=== PATIENT | female | born 1940 | race Caucasian/White ===

== ENCOUNTER 2016-08-03 07:57 | Day surgery (SDC) | payer MEDICARE, MEDICAID ==
[2016-08-03 08:05] VITALS: BMI 36.6
[2016-08-03 08:09] VITALS: RESP 18
--- NOTE | 2016-08-03 08:10 | ED PDOC ---
Arrival/HPI - General Time Seen by Provider: 08/03/16 07:59 Historian: [facility] - History of Present Illness Narrative History of Present Illness (Text): 08/03/16 08:08 Patient is a 75 year old female with a past medical history that includes anemia , hypertension, diabetes, CHF, and COPD presenting to the emergency department from nursing for PICC line placement. half-way documentation reviewed which states PICC line placement was attempted on 08/02/16 in outpatient facility and failed. It is unclear why the patient needs a PICC line. Patient was transferred to ER for Dr. Muniz to place PICC line. Past Medical History - Provider Review Nursing Documentation Reviewed: Yes - Past History Past History: Non-Contributing - Infectious Disease Hx of Infectious Diseases: None - Tetanus Immunization Tetanus Immunization: Unknown - Cardiac Hx Congestive Heart Failure: Yes Hx Hypertension: Yes Hx Peripheral Vascular Disease: Yes - Pulmonary Hx Asthma: Yes Hx Bronchitis: Yes Hx Chronic Obstructive Pulmonary Disease (COPD): Yes Hx Emphysema: Yes Hx Pneumonia: Yes Hx Respiratory Tract Infection: Yes Other/Comment: pt has trach - Neurological HX Cerebrovascular Accident: Yes Other/Comment: gout - HEENT Hx Glaucoma: Yes - Renal Hx Renal Disorder: No Hx Dialysis: No Hx Kidney Stones: No Hx Neurogenic Bladder: No Hx Pyelonephritis: No Hx Renal Cancer: No Hx Renal Failure: No Other/Comment: acute renal failure - Endocrine/Metabolic Hx Diabetes Mellitus Type 2: Yes - Hematological/Oncological Hx Anemia: Yes - Integumentary Hx Dermatological Disorder: No Hx Basal Cell Carcinoma: No Hx Eczema: No Hx Melanoma: No Hx Psoriasis: No Hx Squamous Cell Carcinoma: No - Musculoskeletal/Rheumatological Hx Falls: No Hx Gout: Yes Hx Spinal Stenosis: Yes - Gastrointestinal Hx Colostomy: Yes Hx Gastroesophageal Reflux: Yes HX Swallowing Problems: Yes Other/Comment: hx tube feeding;g-tube - Genitourinary/Gynecological Hx Urinary Tract Infection: Yes Other/Comment: 2w higgins - Psychiatric Hx Depression: Yes Hx Substance Use: No - Past Surgical History Past Surgical History: Unable to Obtain - Surgical History Hx Amputation: No Hx Appendectomy: No Hx Cardiac Catheterization: No Hx Cholecystectomy: No Hx Coronary Stent: No Hx Gastric Bypass Surgery: No Hx Hysterectomy: No Hx Joint Replacement: No Hx Kidney Transplant: No Hx Liver Transplant: No Hx Mastectomy: No Hx Musculoskeletal Surgery: No Hx Open Heart Surgery: No Hx Orthopedic Surgery: No Hx Splenectomy: No Hx Valve Replacement: No - Anesthesia Hx Anesthesia: No Hx Anesthesia Reactions: No Hx Malignant Hyperthermia: No - Suicidal Assessment Feels Threatened In Home Enviroment: No Family/Social History - Physician Review Nursing Documentation Reviewed: Yes Family/Social History: Unknown Family HX Smoking Status: Former Smoker Hx Alcohol Use: No Hx Substance Use: No Hx Substance Use Treatment: No Allergies/Home Meds Allergies/Adverse Reactions: Allergies No Known Allergies Allergy (Verified 08/03/16 08:05) [place] [facility] [place] Home Medications: Home Meds Medication Instructions Recorded Confirmed Insulin Glargine, Recombina 10 unit SC HS 07/29/15 08/03/16 [Lantus] Albuterol/Ipratropium [Duoneb 3 3 ml IH QID 07/02/16 08/03/16 MG/3 Ml-0.5 MG/3 Ml 3 Ml] Allopurinol [Zyloprim] 100 mg JT DAILY 07/02/16 08/03/16 Heparin [Heparin (RENAL)] 5,000 units SC BID 07/02/16 08/03/16 Rosuvastatin Calcium [Crestor] 5 mg JT DAILY 07/02/16 08/03/16 Acetaminophen [Tylenol 650 mg Supp] 650 mg PEG Q6H PRN 08/03/16 08/03/16 Acetylcysteine 20% [Acetylcysteine 1 inh INH QID 08/03/16 08/03/16 20%] Amino Acids/Protein Hydrolys 30 ml JT DAILY 08/03/16 08/03/16 [Prosource No Carb Liquid Pkt] Clotrimazole/Betamethasone 0 gm TOP BID 08/03/16 08/03/16 [Lotrisone] Epoetin Pascual [Procrit] 40,000 unit SC MON 08/03/16 08/03/16 Insulin Lispro-LOW [humALOG LOW] 0 units SC BID 08/03/16 08/03/16 Levothyroxine [Synthroid] 200 mcg PEG DAILY 08/03/16 08/03/16 Review of Systems - Review of Systems Systems not reviewed;Unavailable: Other (Nonverbal) Physical Exam Vital Signs Reviewed: Yes Vital Signs Temp Pulse Resp BP Pulse Ox 08/03/16 11:09 95 H 18 196/84 H 97 08/03/16 08:09 97.9 F 98 H 18 123/53 L 97 Temperature: Afebrile Blood Pressure: Normal Pulse: Regular Respiratory Rate: Normal Appearance: Positive for: Well-Appearing, Non-Toxic Pain Distress: None Mental Status: Positive for: other (Nonverbal but following commands and responding by shaking head) - Systems Exam Head: Present: Atraumatic, Normocephalic Pupils: Present: PERRL Conjunctiva: Present: Normal Respiratory/Chest: Present: Clear to Auscultation, Good Air Exchange, Other ( Trach tube in place ). No: Respiratory Distress, Accessory Muscle Use Cardiovascular: Present: Regular Rate and Rhythm, Normal S1, S2. No: Murmurs Abdomen: Present: Normal Bowel Sounds, Other (G-tube in place with dressing). No: Tenderness, Distention, Peritoneal Signs Genitourinary/Pelvic Exam: Present: Other (Higgins in place) Upper Extremity: Present: Normal Inspection. No: Cyanosis, Edema Lower Extremity: Present: Normal Inspection, Normal ROM, Other (Moving lower extremities ). No: Edema Neurological: Present: Motor Func Grossly Intact Skin: Present: Warm, Dry, Normal Color. No: Rashes Psychiatric: Present: Alert, Other (Nonverbal but following commands and responding by shaking head) Medical Decision Making ED Course and Treatment: Impression: 75 year old female with a past medical history that includes anemia , hypertension, diabetes, CHF, and COPD presents to the emergency department from nursing for PICC line placement. Plan: -- PICC line placement by Dr. Muniz Prior Visits: Notes and results from previous visits were reviewed. Patient last seen in ED on 07/02/16 for g-tube replacement and discharged. Progress Notes: 08/03/16 08:59 Dr. Muniz paged, awaiting PICC line placement. 08/03/16 11:19 Dr. Muniz is being covered by Dr. Panda. Patient to be transferred to Same day surgery for PICC line placement. - Scribe Statement The provider has reviewed the documentation as recorded by the Christiane Heredia Provider Scribe Attestation: All medical record entries made by the Scribe were at my direction and personally dictated by me. I have reviewed the chart and agree that the record accurately reflects my personal performance of the history, physical exam, medical decision making, and the department course for this patient. I have also personally directed, reviewed, and agree with the discharge instructions and disposition. Disposition/Present on Arrival - Present on Arrival Any Indicators Present on Arrival: No History of DVT/PE: No History of Uncontrolled Diabetes: No Urinary Catheter: Yes (changed in ed) History Surgical Site Infection Following: None - Disposition Have Diagnosis and Disposition been Completed?: Yes Diagnosis: Needs peripherally inserted central catheter (PICC) Disposition: HOSPITALIZED Disposition Time: 11:20 Patient Plan: Transfer To ([facility]) Condition: GOOD
[2016-08-03 12:27] VITALS: PULSE 87
[2016-08-03] MEDS ORDERED: Lidocaine 2% Inj (20ml) ONE (16:23)
[2016-08-03] MEDS ORDERED: Iohexol 350mgl/ml 50 ML ONE (16:55)
--- NOTE | 2016-08-03 17:39 | VASCULAR ---
PROCEDURE: Ultrasound and fluoroscopically placed right upper extremity PICC line. HISTORY: Sepsis. Needs IV antibiotics. Needs PICC line. PHYSICIAN(S): Bryan Muniz MD. TECHNIQUE: The relative risks and indications of the procedure were explained to the patient's family and consent obtained. Initially attempts at placing a PICC line on the left were performed. There is extensive venous occlusive disease on the left centrally and a PICC line could not be placed on the left. The patient was placed supine on the arteriogram table and the right arm prepped and draped in the usual sterile fashion. A tourniquet was applied to the right axilla. 1% Xylocaine was used to anesthetize the skin and soft tissues at the puncture site above the elbow. The right basilic vein was punctured under direct ultrasound guidance with a micropuncture set. A 0.018 guidewire was advanced centrally and used to measure the length to the SVC/RA junction. A 5 Italian single-lumen PICC line 41 cm long was advanced to the SVC/RA junction. The catheter was flushed and secured. The patient tolerated the procedure well. IMPRESSION: 1. Ultrasound and fluoroscopically placed right upper extremity PICC line. A 5 Italian single-lumen PICC line 41 cm long was advanced to the SVC/RA junction. 2. Extensive venous occlusive disease on the left. A PICC line could not be placed left upper extremity.
[2016-08-03 17:59] VITALS: BP 154/64; TEMP 97.8; O2SAT 100
== END 2016-08-03 19:15 ==
LOC: ED 07:57 → CATH 13:29
PROVIDERS: ATTEND Radiology Vascular & Interventional Radiology
DX: Z45.2 Encounter for adjustment and management of vascular access device (principal); D64.9 Anemia, unspecified; I10 Essential (primary) hypertension; E11.9 Type 2 diabetes mellitus without complications; I50.9 Heart failure, unspecified; J44.9 Chronic obstructive pulmonary disease, unspecified; F32.89 Other specified depressive episodes; H40.9 Unspecified glaucoma; I73.9 Peripheral vascular disease, unspecified; J45.909 Unspecified asthma, uncomplicated; M10.9 Gout, unspecified; Z79.4 Long term (current) use of insulin; Z86.73 Personal history of transient ischemic attack (TIA), and cerebral infarction without residual deficits; Z87.891 Personal history of nicotine dependence; Z93.0 Tracheostomy status; Z93.3 Colostomy status; Z87.01 Personal history of pneumonia (recurrent); N17.9 Acute kidney failure, unspecified; Z87.440 Personal history of urinary (tract) infections
CPT/HCPCS: 36569; 76937; 77001; 99284; C1751; C1769; J1644; Q9967

== ENCOUNTER 2016-08-16 10:35 | Emergency (ER) | payer MEDICARE, MEDICAID ==
[2016-08-16 10:36] VITALS: BMI 36.6
[2016-08-16 11:02] VITALS: TEMP 97.6
--- NOTE | 2016-08-16 11:35 | ED PDOC ---
Arrival/HPI - General Chief Complaint: Medical Clearance Time Seen by Provider: 08/16/16 11:16 Historian: Correction - History of Present Illness Narrative History of Present Illness (Text): 08/16/16 11:16 A 76 year old female, whose past medical history includes CHF, diabetes, hypertension, COPD and trachea and J tube, who is sent into the emergency department for the longterm for a dislodged J tube and tracheostomy tube change. There is no report of fever, nausea, vomiting, or any other complaints at this time. Patient says feels some skin irritation of the abdomen around j- tube site. PMD: Dr. Aceves Surgeon: Dr. Torres Past Medical History - Provider Review Nursing Documentation Reviewed: Yes - Past History Past History: Non-Contributing - Infectious Disease Hx of Infectious Diseases: None - Tetanus Immunization Tetanus Immunization: Unknown - Cardiac Hx Congestive Heart Failure: Yes Hx Hypertension: Yes Hx Peripheral Vascular Disease: Yes - Pulmonary Hx Asthma: Yes Hx Bronchitis: Yes Hx Chronic Obstructive Pulmonary Disease (COPD): Yes Hx Emphysema: Yes Hx Pneumonia: Yes Hx Respiratory Tract Infection: Yes Other/Comment: pt has trach - Neurological HX Cerebrovascular Accident: Yes Other/Comment: gout - HEENT Hx Glaucoma: Yes - Renal Hx Renal Disorder: No Hx Dialysis: No Hx Kidney Stones: No Hx Neurogenic Bladder: No Hx Pyelonephritis: No Hx Renal Cancer: No Hx Renal Failure: No Other/Comment: acute renal failure - Endocrine/Metabolic Hx Diabetes Mellitus Type 2: Yes - Hematological/Oncological Hx Anemia: Yes - Integumentary Hx Dermatological Disorder: No Hx Basal Cell Carcinoma: No Hx Eczema: No Hx Melanoma: No Hx Psoriasis: No Hx Squamous Cell Carcinoma: No - Musculoskeletal/Rheumatological Hx Falls: No Hx Gout: Yes Hx Spinal Stenosis: Yes - Gastrointestinal Hx Colostomy: Yes Hx Gastroesophageal Reflux: Yes HX Swallowing Problems: Yes Other/Comment: hx tube feeding;g-tube - Genitourinary/Gynecological Hx Urinary Tract Infection: Yes Other/Comment: 2w higgins - Psychiatric Hx Depression: Yes Hx Substance Use: No - Past Surgical History Past Surgical History: Unable to Obtain - Surgical History Hx Amputation: No Hx Appendectomy: No Hx Cardiac Catheterization: No Hx Cholecystectomy: No Hx Coronary Stent: No Hx Gastric Bypass Surgery: No Hx Hysterectomy: No Hx Joint Replacement: No Hx Kidney Transplant: No Hx Liver Transplant: No Hx Mastectomy: No Hx Musculoskeletal Surgery: No Hx Open Heart Surgery: No Hx Orthopedic Surgery: No Hx Splenectomy: No Hx Valve Replacement: No - Anesthesia Hx Anesthesia: No Hx Anesthesia Reactions: No Hx Malignant Hyperthermia: No - Suicidal Assessment Feels Threatened In Home Enviroment: No Family/Social History - Physician Review Nursing Documentation Reviewed: Yes Family/Social History: Unknown Family HX Smoking Status: Former Smoker Hx Alcohol Use: No Hx Substance Use: No Hx Substance Use Treatment: No Allergies/Home Meds Allergies/Adverse Reactions: Allergies No Known Allergies Allergy (Verified 08/03/16 08:05) as per [facility] [place] chart Home Medications: Home Meds Medication Instructions Recorded Confirmed Insulin Glargine, Recombina 10 unit SC HS 07/29/15 08/03/16 [Lantus] Albuterol/Ipratropium [Duoneb 3 3 ml IH QID 07/02/16 08/03/16 MG/3 Ml-0.5 MG/3 Ml 3 Ml] Allopurinol [Zyloprim] 100 mg JT DAILY 07/02/16 08/03/16 Heparin [Heparin (RENAL)] 5,000 units SC BID 07/02/16 08/03/16 Rosuvastatin Calcium [Crestor] 5 mg JT DAILY 07/02/16 08/03/16 Acetaminophen [Tylenol 650 mg Supp] 650 mg PEG Q6H PRN 08/03/16 08/03/16 Acetylcysteine 20% [Acetylcysteine 1 inh INH QID 08/03/16 08/03/16 20%] Amino Acids/Protein Hydrolys 30 ml JT DAILY 08/03/16 08/03/16 [Prosource No Carb Liquid Pkt] Clotrimazole/Betamethasone 0 gm TOP BID 08/03/16 08/03/16 [Lotrisone] Epoetin Pascual [Procrit] 40,000 unit SC MON 08/03/16 08/03/16 Insulin Lispro-LOW [humALOG LOW] 0 units SC BID 08/03/16 08/03/16 Levothyroxine [Synthroid] 200 mcg PEG DAILY 08/03/16 08/03/16 Review of Systems - Physician Review All systems were reviewed & negative as marked: Yes - Review of Systems Constitutional: absent: Fevers ENT: Other (dislodged J tube and tracheostomy tube change) Respiratory: absent: SOB Cardiovascular: absent: Chest Pain Gastrointestinal: absent: Nausea, Vomiting Physical Exam Vital Signs Reviewed: Yes Vital Signs Temp Pulse Resp BP Pulse Ox 08/16/16 11:56 79 18 157/76 H 98 08/16/16 10:47 97.6 F 89 17 159/80 H 100 Temperature: Afebrile Blood Pressure: Hypertensive Pulse: Regular Respiratory Rate: Normal Appearance: Positive for: Well-Appearing, Non-Toxic, Comfortable, Other (Obese, pleasant 76 y.o female with trach and PEG, NAD) Pain Distress: None Mental Status: Positive for: Alert and Oriented X 3 - Systems Exam Head: Present: Atraumatic, Normocephalic Pharnyx: Present: Other (Trachea in place) Neck: Present: Other (Tracheostomy in place) Respiratory/Chest: Present: Good Air Exchange, Rhonchi (occasional). No: Respiratory Distress, Tachypneic Cardiovascular: Present: Regular Rate and Rhythm, Normal S1, S2. No: Murmurs Abdomen: Present: Normal Bowel Sounds, Ostomy Tubes (j-tube dislodged with weeping skin and clear yellowish d/c around site). No: Tenderness, Distention Medical Decision Making ED Course and Treatment: 08/16/16 11:16 Impression: A 76 year old female sent in for a dislodged J tube and tracheostomy tube change. Plan: -- Consult Dr. Torres -- Reassess and disposition Prior Visits: Notes and results from previous visits were reviewed. The patient last presented to the emergency department on 08/03/16 for a PICC line placement. Progress Notes: 08/16/16 11:40 Dr. Torres came down to the emergency department to evaluate the patient. 08/16/16 12:57 Dr. Torres changed j-tube with resolution of clearish d/c and also changed the tracheostomy. Dr. Torres said he will discuss with family regarding potentially changing the tube site, given frequency of dislodgement; to be discussed outpatient. Ok for d/c to [place] at this time. - Scribe Statement The provider has reviewed the documentation as recorded by the Scribe Gerry Salvador Provider Scribe Attestation: All medical record entries made by the Scribe were at my direction and personally dictated by me. I have reviewed the chart and agree that the record accurately reflects my personal performance of the history, physical exam, medical decision making, and the department course for this patient. I have also personally directed, reviewed, and agree with the discharge instructions and disposition. Disposition/Present on Arrival - Present on Arrival Any Indicators Present on Arrival: Yes History of DVT/PE: No History of Uncontrolled Diabetes: No Urinary Catheter: Yes (changed in ed) History of Decub. Ulcer: No History Surgical Site Infection Following: None - Disposition Have Diagnosis and Disposition been Completed?: Yes Diagnosis: Tracheostomy care, Jejunostomy tube fell out Disposition: HOME/ ROUTINE Disposition Time: 12:30 Patient Plan: Discharge Condition: GOOD Additional Instructions: Continue j-tube use and maintenance care. Return to the emergency department if any new concerning symptoms. Referrals: Dom Aceves MD [Staff Provider] - Follow up with primary Rudi Torres MD [Staff Provider] - Follow up with primary
[2016-08-16 11:57] VITALS: RESP 18
[2016-08-16 13:34] VITALS: BP 161/61; PULSE 87; O2SAT 100
== END 2016-08-16 15:04 | disposition home or self-care (01) ==
LOC: ED 10:35
DX: Z43.0 Encounter for attention to tracheostomy (principal); Z93.0 Tracheostomy status; Z93.4 Other artificial openings of gastrointestinal tract status; Z87.891 Personal history of nicotine dependence; E11.9 Type 2 diabetes mellitus without complications; I10 Essential (primary) hypertension

== ENCOUNTER 2016-09-20 11:51 | Inpatient (IN) | payer MEDICARE, MEDICAID ==
[2016-09-20 12:20] VITALS: BMI 28.0
[2016-09-20 12:56] LABS: ADD MANUAL DIFF? NO
[2016-09-20 13:04] LABS: BASO # 0.02 K/mm3 (0.0-2.0); BASO % 0.1 % (0.0-3.0); EOS # 0.3 (0.0-0.7); EOS % 2.1 % (1.5-5.0); GRAN # 13.34 (1.4-6.5); GRAN % 81.3 % (50.0-68.0); HEMATOCRIT 33.3 % (36.0-48.0); LYMPH % 12.1 % (22.0-35.0); MEAN CELL VOLUME 96.8 fL (80.0-105.0); MEAN CORPUSCULAR HEMOGLOBIN 31.7 pg (25.0-35.0); MEAN CORPUSCULAR HGB CONC 32.7 g/dl (31.0-37.0); MEAN PLATELET VOLUME 12.2 fl (7.0-11.0); MONO # 0.7 (0.1-0.6); MONO % 4.4 % (1.0-6.0); PLATELET COUNT 293 10^3/uL (120.0-450.0); RED CELL DISTRIBUTION WIDTH 17.2 % (11.5-14.5); WHITE BLOOD COUNT 16.4 10^3/ul (4.5-11.0)
[2016-09-20 13:10] LABS: BILIRUBIN,TOTAL 0.6 mg/dL (0.2-1.3); CALCIUM 9.9 mg/dL (8.4-10.5); MAGNESIUM 2.3 mg/dL (1.7-2.2); TOTAL PROTEIN 7.9 g/dL (5.8-8.3)
[2016-09-20 13:11] LABS: INR 0.99 (0.93-1.08)
--- NOTE | 2016-09-20 13:13 | RAD ---
HISTORY: renal failure COMPARISON: 07/02/2016 FINDINGS: LUNGS: No active pulmonary disease. PLEURA: No significant pleural effusion identified, no pneumothorax apparent. CARDIOVASCULAR: Normal. OSSEOUS STRUCTURES: No significant abnormalities. VISUALIZED UPPER ABDOMEN: Normal. OTHER FINDINGS: None. IMPRESSION: No active disease.
[2016-09-20 13:21] LABS: POTASSIUM 2.9 mmol/L (3.6-5.0); TROPONIN I 0.04 ng/mL
[2016-09-20] MEDS ORDERED: Potassium Chloride 40 mEq/30 ml LIQ UD PO STA (13:28)
--- NOTE | 2016-09-20 13:29 | ED PDOC ---
Arrival/HPI - General Chief Complaint: Abnormal Labs Time Seen by Provider: 09/20/16 11:58 Historian: Patient - History of Present Illness Narrative History of Present Illness (Text): 09/20/16 12:23 A 76 year old female, whose past medical history includes COPD, CHF, diabetes, hypertension, chronic renal insufficiency with baseline about creatine of 3.5, decubitus ulcer and trachea and J tube, who is [facility] for elevated creatine levels. The patient herself, says she feels like her usually state of health. Patient denies any fever, or other complaints at this time. PMD: Dr. Aceves Surgeon: Dr. Torres Past Medical History - Provider Review Nursing Documentation Reviewed: Yes - Past History Past History: Non-Contributing - Infectious Disease Hx of Infectious Diseases: None - Tetanus Immunization Tetanus Immunization: Unknown - Cardiac Hx Congestive Heart Failure: Yes Hx Hypertension: Yes Hx Peripheral Vascular Disease: Yes - Pulmonary Hx Asthma: Yes Hx Bronchitis: Yes Hx Chronic Obstructive Pulmonary Disease (COPD): Yes Hx Emphysema: Yes Hx Pneumonia: Yes Hx Respiratory Tract Infection: Yes Other/Comment: pt has trach - Neurological HX Cerebrovascular Accident: Yes Other/Comment: gout - HEENT Hx Glaucoma: Yes - Renal Hx Renal Disorder: No Hx Dialysis: No Hx Kidney Stones: No Hx Neurogenic Bladder: No Hx Pyelonephritis: No Hx Renal Cancer: No Hx Renal Failure: No Other/Comment: acute renal failure - Endocrine/Metabolic Hx Diabetes Mellitus Type 2: Yes - Hematological/Oncological Hx Anemia: Yes - Integumentary Hx Dermatological Disorder: No Hx Basal Cell Carcinoma: No Hx Eczema: No Hx Melanoma: No Hx Psoriasis: No Hx Squamous Cell Carcinoma: No - Musculoskeletal/Rheumatological Hx Falls: No Hx Gout: Yes Hx Spinal Stenosis: Yes - Gastrointestinal Hx Colostomy: Yes Hx Gastroesophageal Reflux: Yes HX Swallowing Problems: Yes Other/Comment: hx tube feeding;g-tube - Genitourinary/Gynecological Hx Urinary Tract Infection: Yes Other/Comment: 2w higgins - Psychiatric Hx Depression: Yes Hx Substance Use: No - Past Surgical History Past Surgical History: Unable to Obtain - Surgical History Hx Amputation: No Hx Appendectomy: No Hx Cardiac Catheterization: No Hx Cholecystectomy: No Hx Coronary Stent: No Hx Gastric Bypass Surgery: No Hx Hysterectomy: No Hx Joint Replacement: No Hx Kidney Transplant: No Hx Liver Transplant: No Hx Mastectomy: No Hx Musculoskeletal Surgery: No Hx Open Heart Surgery: No Hx Orthopedic Surgery: No Hx Splenectomy: No Hx Valve Replacement: No - Anesthesia Hx Anesthesia: No Hx Anesthesia Reactions: No Hx Malignant Hyperthermia: No - Suicidal Assessment Feels Threatened In Home Enviroment: No Family/Social History - Physician Review Nursing Documentation Reviewed: Yes Family/Social History: Unknown Family HX Smoking Status: Former Smoker Hx Alcohol Use: No Hx Substance Use: No Hx Substance Use Treatment: No Allergies/Home Meds Allergies/Adverse Reactions: Allergies No Known Allergies Allergy (Verified 09/20/16 13:05) as per [facility] Home Medications: Home Meds Medication Instructions Recorded Confirmed Insulin Glargine, Recombina 10 unit SC HS 07/29/15 08/03/16 [Lantus] Albuterol/Ipratropium [Duoneb 3 3 ml IH QID 07/02/16 08/03/16 MG/3 Ml-0.5 MG/3 Ml 3 Ml] Allopurinol [Zyloprim] 100 mg JT DAILY 07/02/16 08/03/16 Heparin [Heparin (RENAL)] 5,000 units SC BID 07/02/16 08/03/16 Rosuvastatin Calcium [Crestor] 5 mg JT DAILY 07/02/16 08/03/16 Acetaminophen [Tylenol 650 mg Supp] 650 mg PEG Q6H PRN 08/03/16 08/03/16 Acetylcysteine 20% [Acetylcysteine 1 inh INH QID 08/03/16 08/03/16 20%] Amino Acids/Protein Hydrolys 30 ml JT DAILY 08/03/16 08/03/16 [Prosource No Carb Liquid Pkt] Clotrimazole/Betamethasone 0 gm TOP BID 08/03/16 08/03/16 [Lotrisone] Epoetin Pascual [Procrit] 40,000 unit SC MON 08/03/16 08/03/16 Insulin Lispro-LOW [humALOG LOW] 0 units SC BID 08/03/16 08/03/16 Levothyroxine [Synthroid] 200 mcg PEG DAILY 08/03/16 08/03/16 Review of Systems - Physician Review All systems were reviewed & negative as marked: Yes - Review of Systems Constitutional: Other. absent: Fevers Respiratory: absent: SOB, Cough Cardiovascular: absent: Chest Pain Gastrointestinal: Abdominal Pain (chronic around j-tube site). absent: Nausea, Vomiting Genitourinary Female: Frequency (diminished), Other (elevated creatinine) Musculoskeletal: absent: Back Pain Neurological: absent: Dizziness Physical Exam Vital Signs Reviewed: Yes Vital Signs Temp Pulse Resp BP Pulse Ox 09/20/16 11:52 98.1 F 90 18 145/50 L 98 Temperature: Afebrile Blood Pressure: Normal Pulse: Regular Respiratory Rate: Normal Appearance: Positive for: Non-Toxic, Other (patient with trach and j-tube) Pain Distress: None Mental Status: Positive for: Alert and Oriented X 3 - Systems Exam Head: Present: Atraumatic, Normocephalic Pupils: Present: PERRL Conjunctiva: Present: Normal Mouth: Present: Moist Mucous Membranes Pharnyx: Present: Normal. No: ERYTHEMA Neck: Present: Normal Range of Motion, Other (trachea tube in place) Respiratory/Chest: Present: Good Air Exchange, Decreased Breath Sounds ( bilateral bases). No: Respiratory Distress, Accessory Muscle Use Cardiovascular: Present: Regular Rate and Rhythm, Normal S1, S2. No: Murmurs Abdomen: Present: Tenderness (around j-tube site), Normal Bowel Sounds, Other ( colostomy and J tube in place with raw abdominal wall and tenderness with palpation around the J-tube site (chronic)). No: Distention, Peritoneal Signs Back: Present: Decubitus Ulcer (stage 2 decubitus ulcer on the left) Upper Extremity: Present: Normal Inspection. No: Cyanosis, Edema Lower Extremity: Present: Normal Inspection. No: Edema Neurological: Present: GCS=15, CN II-XII Intact, Speech Normal Skin: Present: Warm, Dry, Normal Color. No: Rashes Psychiatric: Present: Alert, Oriented x 3, Normal Insight, Normal Concentration. No: Normal Mood (patients mood seem slightly depressed compared to her prior visits) Medical Decision Making ED Course and Treatment: 09/20/16 12:23 Impression: A 76 year old female with elevated creatine levels. Patient usually has creatine levels in the 3 range Differential Diagnosis included but are not limited to: Kidney failure diagnosed. Elevated WBC possibly due to chronically infected abdominal wall site Plan: -- EKG -- Chest X-ray -- Labs -- Urinalysis -- Reassess and disposition Prior Visits: Notes and results from previous visits were reviewed. The patient last presented to the emergency department on 08/16/16 for evaluation of a dislodged J tube and tracheostomy tube change. Progress Notes: 09/20/16 14:21 Patient with creatinine of 8.1 and BUN > 150 - will start IV hydration. Will also start abx for elevated WBC of 16.4K; lactic acid 1.6; patient does not fit code sepsis criteria. K is 2.9 -will supplement. Case discussed with Dr. Aceves - will need to be admitted to med/surg for profound renal failure. - Lab Interpretations Lab Results: 09/20/16 12:45 09/20/16 12:45 Lab Results 09/20/16 13:05: pO2 53, VBG pH 7.34, VBG pCO2 58.0, VBG HCO3 31.3 H, VBG Total CO2 33.1 H, VBG O2 Sat (Calc) 93.7 H, VBG Base Excess 3.9 H, VBG Potassium 3.3 L , Glucose 281 H, Lactate 1.6, FiO2 21.0, Sodium 137.0, Chloride 96.0 L, Venous Blood Potassium 3.3 L 09/20/16 12:45: Blood Type Pending, Antibody Screen Pending, BBK History Checked Patient has bt 09/20/16 12:45: Sodium 137, Potassium 2.9 L*, Chloride 91 L, Carbon Dioxide 29, Anion Gap 20, BUN 155 H*, Creatinine 8.1 H*, Est GFR ( Amer) 6, Est GFR ( Non-Af Amer) 5, Random Glucose 276 H, Calcium 9.9, Magnesium 2.3 H, Total Bilirubin 0.6, AST 22, ALT 28, Alkaline Phosphatase 153 H, Lactate Dehydrogenase 303 L, Total Creatine Kinase 23 L, Troponin I 0.04 D, Total Protein 7.9, Albumin 3.9, Globulin 4.0, Albumin/Globulin Ratio 1.0 L 09/20/16 12:45: PT 10.7, INR 0.99, APTT 28.0 09/20/16 12:45: WBC 16.4 H D, RBC 3.44 L, Hgb 10.9 L, Hct 33.3 L, MCV 96.8, MCH 31.7, MCHC 32.7, RDW 17.2 H, Plt Count 293, MPV 12.2 H, Gran % 81.3 H, Lymph % ( Auto) 12.1 L, [place] % (Auto) 4.4, Eos % (Auto) 2.1, Baso % (Auto) 0.1, Gran # 13.34 H, Lymph # 2.0, [place] # 0.7 H, Eos # 0.3, Baso # 0.02 I have reviewed the lab results: Yes - RAD Interpretation Radiology Orders: 09/20/16 12:33 CHEST PORTABLE [RAD] Stat - EKG Interpretation EKG Interpretation (Text): 09/20/16 14:25 NSR @ 95 with RBBB; Q waves inferiorly; QRS is 150; normal axis; no new ST/T changes c/w previous on 07/02/16 - Medication Orders Current Medication Orders: Acetylcysteine (Acetylcysteine 20%) 1 ml INH QID [facility] Albuterol/Ipratropium (Duoneb 3 Mg/0.5 Mg (3 Ml) Ud) 3 ml IH QIDRESP [facility] Vancomycin HCl (Vancomycin 1gm) 1 gm in 250 mls @ 133.333 mls/hr IVPB STAT STA PRN Reason: Protocol Stop: 09/20/16 15:26 Sodium Chloride (Sodium Chloride 0.9%) 1,000 mls @ 100 mls/hr IV .Q10H [facility] Stop: 09/24/16 17:44 Ampicillin Sodium/Sulbactam Sodium (Unasyn 1 Gm-0.5 Gm) 1 gm in 100 mls @ 100 mls/hr IVPB ONCE STA PRN Reason: Protocol Stop: 09/20/16 14:46 Insulin Detemir (Levemir) 10 unit SC HS [facility] Insulin Human Lispro (Humalog Low) 0 units SC Q6H [facility] PRN Reason: Protocol Levothyroxine Sodium (Synthroid) 200 mcg PEG ACB [facility] Metoprolol Tartrate (Lopressor) 25 mg PEG Q8 [facility] Non-Formulary Medication (Epoetin Pascual [Procrit]) 40,000 unit SC MON [facility] Non-Formulary Medication (Rosuvastatin Calcium [Crestor]) 5 mg JT DAILY [facility] Pantoprazole Sodium (Protonix Susp) 40 mg PEG DAILY [facility] Discontinued Medications Iohexol (Omnipaque 240 (50 Ml)) Confirm Administered Dose 50 ml .ROUTE .STK-MED ONE Stop: 09/20/16 13:43 Potassium Chloride (Potassium Chloride Oral Soln) 40 meq PO STAT STA Stop: 09/20/16 13:29 - Scribe Statement The provider has reviewed the documentation as recorded by the Elvinibblaine Salvador Provider Elvinibe Attestation: All medical record entries made by the Scribe were at my direction and personally dictated by me. I have reviewed the chart and agree that the record accurately reflects my personal performance of the history, physical exam, medical decision making, and the department course for this patient. I have also personally directed, reviewed, and agree with the discharge instructions and disposition. Disposition/Present on Arrival - Present on Arrival Any Indicators Present on Arrival: Yes History of DVT/PE: No History of Uncontrolled Diabetes: No Urinary Catheter: Yes (changed in ed) History of Decub. Ulcer: No History Surgical Site Infection Following: None - Disposition Have Diagnosis and Disposition been Completed?: Yes Diagnosis: Renal failure, Leukocytosis, Hypokalemia Disposition: HOSPITALIZED Disposition Time: 13:33 Patient Plan: Admission Condition: SERIOUS
[2016-09-20] MEDS ORDERED: Vancomycin 1gm in NS 250ml 1 GM/250 ML BAG IVPB STA (13:34)
[2016-09-20] MEDS ORDERED: Iohexol 240 (50 ml) ONE (13:42)
[2016-09-20] MEDS ORDERED: Non Formulary Medication (Rosuvastatin Calcium [Crestor] 5 MG) JT SCH (13:45)
[2016-09-20] MEDS: Sodium Chloride 0.9% 1,000 ML IV SCH ×2 (14:00→14:29)
[2016-09-20 14:01] LABS: VENOUS BLOOD GAS BASE EXCESS 3.9 mmol/L (0.0-2.0); VENOUS BLOOD PH 7.34 (7.32-7.43)
[2016-09-20] MEDS: Albuterol-Ipratrop 3 mg / 0.5 (3 ml) UD IH SCH ×2 (14:19→17:04)
[2016-09-20] MEDS: Sodium Chloride 0.9% 1,000 ML IV STA ×2 (14:20→14:55)
[2016-09-20] MEDS ORDERED: Insulin Regular 1 UNITS/0.01 ML ML ONE (14:36)
[2016-09-20] MEDS: Insulin Lispro (humaLOG) LOW Coverage SC SCH ×2 (14:37→22:57)
[2016-09-20] MEDS: Pantoprazole 40 mg Susp UD PEG SCH (14:39)
[2016-09-20] MEDS: Acetylcysteine 20% Inhal Soln (4ml) INH SCH (14:39)
--- NOTE | 2016-09-20 16:10 | CP.PCM.CON ---
<CliffCaden - Last Filed: 09/20/16 16:49> History of Present Illness - History of Present Illness History of Present Illness: General Surgery Consult Note for Dr. Torres 75 F with PMHx COPD, chronic CHF, DM, S/P PEG tube placement, chronic renal failure Stage 4, chronic higgins catheter use due to neurogenic bladder was brought to [facility] because of abnormal labs consisting of elevated BUN and creatinine leukocytosis and acute renal failure and hypokalemia at [facility] and subsequently brought to [facility] ED. sent to the ER. Patient reports mild abdominal pain. She denies having fever, chills, CP, SOB, n/v/d palpitations, dysuria, hematuria, numbness or tingling. PMHx: HTN, IDDM, CHF, GERD, JUANPABLO, gout, functional quadroplegia (bedridden), decubitus ulcer, colonic volvulus, COPD , CKD stage IV, baseline Cr 3.5, hypothyriodism, [place], neurogenic bladder PSHx: colostomy, jejunostomy, peg and trach placement SHx: denies etoh/former smoker tobacco/denied illicit drug use FamHx: non contributory Meds: MAR Reviewed Allergies: NKDA PMD: Dr. cAeves Review of Systems - Review of Systems Review of Systems: as per HPI otherwise negative Past Patient History - Infectious Disease Hx of Infectious Diseases: None - Tetanus Immunizations Tetanus Immunization: Unknown - Past Social History Smoking Status: Former Smoker - CARDIAC Hx Congestive Heart Failure: Yes Hx Hypertension: Yes Hx Peripheral Vascular Disease: Yes - PULMONARY Hx Asthma: Yes Hx Bronchitis: Yes Hx Chronic Obstructive Pulmonary Disease (COPD): Yes Hx Emphysema: Yes Hx Pneumonia: Yes Hx Respiratory Tract Infection: Yes Other/Comment: pt has trach - NEUROLOGICAL HX Cerebrovascular Accident: Yes Other/Comment: gout - HEENT Hx Glaucoma: Yes - RENAL Hx Chronic Kidney Disease: No Hx Dialysis: No Hx Kidney Stones: No Hx Neurogenic Bladder: No Hx Pyelonephritis: No Hx Renal (Kidney) Cancer: No Hx Renal Failure: No Other/Comment: acute renal failure - ENDOCRINE/METABOLIC Hx Diabetes Mellitus Type 2: Yes - HEMATOLOGICAL/ONCOLOGICAL Hx Anemia: Yes - INTEGUMENTARY Hx Dermatological Problems: No Hx Basil Cell: No Hx Eczema: No Hx Melanoma: No Hx Psoriasis: No Hx Squamous Cell: No - MUSCULOSKELETAL/RHEUMATOLOGICAL Hx Falls: No Hx Gout: Yes Hx Spinal Stenosis: Yes - GASTROINTESTINAL Hx Colostomy: Yes Hx Gastroesophageal Reflux: Yes HX Swallowing Problems: Yes Other/Comment: hx tube feeding;g-tube - GENITOURINARY/GYNECOLOGICAL Hx Urinary Tract Infection: Yes Other/Comment: 2w higgins - PSYCHIATRIC Hx Depression: Yes Hx Substance Use: No - SURGICAL HISTORY Hx Amputation: No Hx Appendectomy: No Hx Cardiac Catheterization: No Hx Cholecystectomy: No Hx Coronary Stent: No Hx Gastric Bypass Surgery: No Hx Hysterectomy: No Hx Joint Replacement: No Hx Kidney Transplant: No Hx Liver Transplant: No Hx Mastectomy: No Hx Musculoskeletal Surgery: No Hx Open Heart Surgery: No Hx Orthopedic Surgery: No Hx Splenectomy: No Hx Valve Replacement: No - ANESTHESIA Hx Anesthesia: No Hx Anesthesia Reactions: No Hx Malignant Hyperthermia: No Meds Allergies/Adverse Reactions: Allergies Allergy/AdvReac Type Severity Reaction Status Date / Time No Known Allergies Allergy Verified 09/20/16 13:05 - Medications Medications: Current Medications Acetylcysteine (Acetylcysteine 20%) 1 ml INH QID [facility] Last Admin: 09/20/16 14:39 Dose: 1 ml Albuterol/Ipratropium (Duoneb 3 Mg/0.5 Mg (3 Ml) Ud) 3 ml IH QIDRESP [facility] Last Admin: 09/20/16 14:19 Dose: 3 ml Atorvastatin Calcium (Lipitor) 20 mg JT DAILY [facility] Darbepoetin Pascual (Aranesp) 100 mcg SC MON [facility] Sodium Chloride (Sodium Chloride 0.9%) 1,000 mls @ 100 mls/hr IV .Q10H [facility] Stop: 09/24/16 17:44 Last Admin: 09/20/16 14:00 Dose: 100 mls/hr Insulin Detemir (Levemir) 10 unit SC HS [facility] Insulin Human Lispro (Humalog Low) 0 units SC Q6H [facility] PRN Reason: Protocol Last Admin: 09/20/16 14:37 Dose: 3 units Levothyroxine Sodium (Synthroid) 200 mcg PEG ACB [facility] Metoprolol Tartrate (Lopressor) 25 mg PEG Q8 [facility] Last Admin: 09/20/16 14:19 Dose: 25 mg Pantoprazole Sodium (Protonix Susp) 40 mg PEG DAILY [facility] Last Admin: 09/20/16 14:39 Dose: 40 mg Physical Exam - Constitutional Appears: No Acute Distress - Head Exam Head Exam: ATRAUMATIC, NORMAL INSPECTION, NORMOCEPHALIC - Eye Exam Eye Exam: EOMI, Normal appearance, PERRL Pupil Exam: NORMAL ACCOMODATION, PERRL - ENT Exam ENT Exam: Mucous Membranes Moist, Normal Exam - Neck Exam Neck exam: Positive for: Normal Inspection - Respiratory Exam Respiratory Exam: Clear to Auscultation Bilateral, NORMAL BREATHING PATTERN - Cardiovascular Exam Cardiovascular Exam: REGULAR RHYTHM, +S1, +S2 - GI/Abdominal Exam GI & Abdominal Exam: Normal Bowel Sounds, Soft. absent: Tenderness Additional comments: G-tube in place, some excoriations, Rt Colostomy with feces - Exam Additional comments: higgins in place - Neurological Exam Neurological exam: Alert, CN II-XII Intact, Oriented x3, Reflexes Normal - Psychiatric Exam Psychiatric exam: Normal Affect, Normal Mood - Skin Skin Exam: Dry, Intact, Normal Color, Warm Results - Vital Signs Recent Vital Signs: Last Vital Signs Temp 98.1 F 09/20/16 11:52 Pulse 96 H 09/20/16 15:03 Resp 18 09/20/16 15:03 BP 151/92 H 09/20/16 15:03 Pulse Ox 98 09/20/16 15:03 - Labs Result Diagrams: 09/20/16 12:45 09/20/16 12:45 Labs: Laboratory Results - last 24 hr 09/20/16 13:48 Uric Acid 9.9 H Assessment & Plan - Assessment and Plan (Free Text) Assessment: 76 F with leukocytosis and Acute renal failure - CT abdomen pending, fu result and correlate clinically - Rt side colostomy intact with feces. Jtube in place, excoriations noted - no signs of infx. - Trach in place. - WBC: 16.4, afebrile, lactic acid 1.6, received vanco and unasyn in ED, not criteria for sepsis - NPO, IVF, will fu results of CT Seen reviewed and discussed with attending Caden Coronado, PGY1 <Rudi Torres - Last Filed: 09/21/16 14:56> Meds - Medications Medications: Current Medications Acetylcysteine (Acetylcysteine 20%) 1 ml INH QID [facility] Last Admin: 09/21/16 08:02 Dose: 1 ml Albuterol/Ipratropium (Duoneb 3 Mg/0.5 Mg (3 Ml) Ud) 3 ml IH QIDRESP [facility] Last Admin: 09/21/16 08:02 Dose: 3 ml Atorvastatin Calcium (Lipitor) 20 mg JT DAILY [facility] Last Admin: 09/21/16 09:31 Dose: 20 mg Darbepoetin Pascual (Aranesp) 100 mcg SC MON [facility] Potassium Chloride 10 meq/ (Sodium Chloride) 1,005 mls @ 100 mls/hr IV .Q10H3M [facility] Stop: 09/24/16 17:44 Last Admin: 09/21/16 04:00 Dose: 100 mls/hr Meropenem 500 mg/ Sodium (Chloride) 100 mls @ 100 mls/hr IVPB Q12 [facility] PRN Reason: Protocol Stop: 09/28/16 10:01 Last Admin: 09/21/16 09:31 Dose: 100 mls/hr Doxycycline Hyclate 100 mg/ (Sodium Chloride) 100 mls @ 100 mls/hr IVPB Q12 [facility] PRN Reason: Protocol Insulin Detemir (Levemir) 10 unit SC HS [facility] Last Admin: 09/20/16 23:16 Dose: 10 unit Insulin Human Lispro (Humalog Low) 0 units SC Q6H [facility] PRN Reason: Protocol Last Admin: 09/21/16 08:51 Dose: 2 units Levothyroxine Sodium (Synthroid) 200 mcg PEG ACB [facility] Last Admin: 09/21/16 08:51 Dose: 200 mcg Metoprolol Tartrate (Lopressor) 25 mg PEG Q8 [facility] Last Admin: 09/21/16 06:08 Dose: Not Given Mupirocin (Bactroban Ointment) 0 gm TOP BID [facility] Pantoprazole Sodium (Protonix Susp) 40 mg PEG DAILY [facility] Last Admin: 09/21/16 09:31 Dose: 40 mg Potassium Chloride (Potassium Chloride Oral Soln) 20 meq GT BID [facility] Results - Vital Signs Recent Vital Signs: Last Vital Signs Temp 97.7 F 09/21/16 07:30 Pulse 80 09/21/16 08:04 Resp 22 09/21/16 07:30 BP 129/55 L 09/21/16 07:30 Pulse Ox 99 09/21/16 07:30 - Labs Result Diagrams: 09/21/16 06:30 09/21/16 06:30 Labs: Laboratory Results - last 24 hr 09/21/16 09/21/16 09/21/16 06:30 06:30 09:00 WBC 10.3 D RBC 2.74 L Hgb 8.5 L Hct 26.8 L MCV 97.8 MCH 31.0 MCHC 31.7 RDW 17.3 H Plt Count 248 MPV 12.2 H Gran % 75.3 H Lymph % (Auto) 15.4 L [place] % (Auto) 5.4 Eos % (Auto) 3.7 Baso % (Auto) 0.2 Gran # 7.73 H Lymph # 1.6 [place] # 0.6 Eos # 0.4 Baso # 0.02 Sodium 139 Potassium 2.8 L* D Chloride 100 Carbon Dioxide 25 Anion Gap 17 BUN 138 H* Creatinine 8.0 H Est GFR ( Amer) 6 Est GFR (Non-Af Amer) 5 Random Glucose 278 H Lactic Acid 1.3 Calcium 8.3 L Total Bilirubin 0.3 Direct Bilirubin 0.3 AST 25 ALT 29 Alkaline Phosphatase 108 Total Protein 6.1 Albumin 2.9 L Globulin 3.2 Albumin/Globulin Ratio 0.9 L Triglycerides Cholesterol LDL Cholesterol Direct HDL Cholesterol Free T4 Thyroxine (T4) TSH 3rd Generation 09/21/16 09/21/16 09:00 09:00 WBC RBC Hgb Hct MCV MCH MCHC RDW Plt Count MPV Gran % Lymph % (Auto) [place] % (Auto) Eos % (Auto) Baso % (Auto) Gran # Lymph # [place] # Eos # Baso # Sodium Potassium Chloride Carbon Dioxide Anion Gap BUN Creatinine Est GFR ( Amer) Est GFR (Non-Af Amer) Random Glucose Lactic Acid Calcium Total Bilirubin Direct Bilirubin AST ALT Alkaline Phosphatase Total Protein Albumin Globulin Albumin/Globulin Ratio Triglycerides 407 H Cholesterol 137 LDL Cholesterol Direct 50 HDL Cholesterol 24 L Free T4 1.25 Thyroxine (T4) 6.2 TSH 3rd Generation 0.67 Assessment & Plan - Assessment and Plan (Free Text) Plan: DX Pre renal Insufficiency PEG Leakage-cellulitis Ventral Hernia COBPD-Respiratory Insufficiency Colostomy DM II Rx Rehydrate-supportive measures only Family doesn"t want dialysis This consult done under my direct supervision Carlos A Torres MD FACS
--- NOTE | 2016-09-20 17:44 | CT ---
PROCEDURE: CT Abdomen and Pelvis with contrast HISTORY: SEPSIS/ARF COMPARISON: Comparison is made to the previous study dated 07/02/2016 TECHNIQUE: Contrast dose: 0 IV contrast. Axial and reformatted coronal and sagittal CT images of the abdomen and pelvis were obtained after oral contrast administration. No IV contrast was given. Radiation dose: Total exam DLP = 1139.19 mGy-cm. This CT exam was performed using one or more of the following dose reduction techniques: Automated exposure control, adjustment of the mA and/or kV according to patient size, and/or use of iterative reconstruction technique. FINDINGS: LOWER THORAX: Linear shaped foci of opacity seen at the right lower lobe new compared to the previous exam may represent atelectasis or pneumonia. No evidence of significant pleural effusion. Again seen is small opacity at the left lung base. The heart is mildly enlarged. LIVER: No significant interval change in the liver since the previous study. GALLBLADDER AND BILE DUCTS: The gallbladder is not clearly visualized. The CBD is mildly dilated could be due to prior cholecystectomy. PANCREAS: No evidence of acute pathology. SPLEEN: Unremarkable. ADRENALS: Unremarkable. No mass. KIDNEYS AND URETERS: No evidence of hydronephrosis. Small vascular calcifications seen in both kidneys. VASCULATURE: Diffuse atherosclerotic calcification again noted. . No aortic aneurysm. BOWEL: Patient status post gastrostomy tube at the right upper abdomen. Again seen are postsurgical changes in the bowel. Again seen is right-sided colostomy. The patient is likely status post transverse and descending colon resection. There are again seen dilated bowel loop in right lateral abdominal hernia without evidence of high-grade bowel obstruction. APPENDIX: No evidence of appendicitis. The appendix is not visualized. PERITONEUM: Unremarkable. No free fluid. No free air. LYMPH NODES: Unremarkable. No enlarged lymph nodes. BLADDER: Hahn catheter in the bladder. There is air in the bladder likely due to recent insertion of the Hahn catheter. Bladder wall thickening cannot be excluded. REPRODUCTIVE: The uterus and adnexa are not visualized. BONES: No significant interval change in the osseous structures since the previous exam. OTHER FINDINGS: None. IMPRESSION: No significant interval change in the abdomen and pelvis since the previous study. Right lower lobe opacity is new compared to the previous exam may represent atelectasis or pneumonia.
--- NOTE | 2016-09-20 18:33 | CARD ---
APPROVED REPORT EKG Measurement Heart [id number] <Conclusion> Normal sinus rhythm Right bundle branch block Inferior infarct, age undetermined Abnormal ECG
--- NOTE | 2016-09-20 20:43 | HP ---
HISTORY OF PRESENT ILLNESS: The patient is a 76-year-old bedridden, chronically debilitated, care home resident of [facility], who was transferred today to the [facility] with acute r enal failure, worsening renal function, elevated WBC count. The patient has been treated intermitten tly at the care home with IV fluid hydration and serial labs but in the last one week, patient aft er stopping the IV fluid, patient's renal functions got worse and patient deteriorated significantly and because of the worsening renal failure and significantly abnormal elevation of BUN, creatinine, p atient was transferred to [facility]. REVIEW OF SYSTEMS: A 13-system review was done. Pertinent positive and negative dictated as above. CODE STATUS: Full code. LIVING WILL AND ADVANCED DIRECTIVE: None. ALLERGIES: Not available. [facility] MEDICATIONS: Insulin Lantus 10 units once a day. Gastrostomy tube feeding. The patien t is on Synthroid. The patient is on Protonix. The patient is on Lopressor. The patient is on Harlan tor. The patient is on gastrostomy tube feeding. The patient is on baby aspirin 81 daily. FURTHER HOME MEDICATIONS: As per care home MAR. OCCUPATIONAL HISTORY: The patient is a disabled care home resident. FAMILY HISTORY: Not available. MENSTRUAL HISTORY: Postmenopausal. PAST MEDICAL AND SURGICAL HISTORY: History of ventilator-dependent respiratory failure, history of t racheostomy, history of exacerbation of chronic obstructive pulmonary disease, history of tracheostom y placement, history of normocytic iron-deficiency anemia, history of multiple iron IV Venofer treatm ents, history of multiple packed red blood cell transfusion, history of tracheostomy, history of kyph osis, history of pneumonia, history of chronic obstructive pulmonary disease, history of right bundle branch block, history of colonic volvulus, history of gastrostomy and jejunostomy placement, history of colostomy, history of neurogenic bladder, history of chronic indwelling Hahn catheter, history o f sacral decubitus ulceration, history of functional quadriplegia with chronic bedridden status, hist ory of severe gait dysfunction, history of hypothyroidism, history of dyslipidemia, history of insuli n-requiring type 1 diabetes mellitus, history of sepsis, history of recurrent urinary tract infection versus colonization, history of pneumonia, history of sepsis and bacteremia, history of chronic kidn ey disease stage III, history of hypokalemia. For further details regarding the past medical history , please refer to multiple previous admissions in [facility] in the [facility]. PHYSICAL EXAMINATION: GENERAL: The patient was seen in the stretcher #2 in the Emergency Room. The patient is seen lying in the bed. The patient is comfortable. The patient is alert, awake, responsive. Does not appear t o be in distress. The patient is noncommunicative because of tracheostomy. VITAL SIGNS: T-max is 98.9, heart rate 72, blood pressure 138/78, O2 sat 95% to 97% on trach collar. HEAD: Normocephalic, atraumatic. HEENT: Shows pinkish, pale conjunctivae. Dry oral mucosa. NECK: Soft carotid bruit. Positive tracheostomy noted. CHEST: Kyphosis. LUNGS: Shows occasional rhonchi upper lung dunaway anteriorly. CARDIOVASCULAR: S1, S2, regular rhythm. Positive soft systolic murmur left sternal border, left sec ond intercostal space. ABDOMEN: Soft with positive gastrostomy jejunostomy. Positive colostomy, positive multiple surgical scars. GENITALIA: Female. Positive Hahn catheter. EXTREMITIES: Shows trace swelling of the lower extremity. Positive sacral decubitus ulceration note d. Positive weakness of the lower extremity is noted. Positive muscle wasting noted diffusely. NEUROLOGIC: The patient is alert, awake, responsive. The patient's neurological examination is limi christa as patient is lying in the stretcher. The patient has severe gait dysfunction. PSYCHIATRIC: Not applicable at present. VASCULAR: Palpable pulses. DIAGNOSTICS: Diagnostics were reviewed from the care home and from [facility]. We felipe ve ordered repeat lab work for the patient today including CBC, CMP, lactic acid, procalcitonin level , blood and urine cultures. All the lab data was reviewed. We have ordered a CAT scan of the abdome n and pelvis without contrast. EKG was reviewed, which shows right bundle branch block. IMPRESSION AND PLAN: 1. Acute renal failure with worsening BUN, creatinine with creatinine going up to greater than 8. 2. Probable prerenal kidney injury and acute renal failure. 3. Leukocytosis with granulocytosis. 4. Chronic normocytic iron deficiency anemia. 5. Hemoconcentration and severe dehydration and hypovolemia. 6. Right bundle branch block. 7. Questionable recurrent chronic urinary tract infection versus colonization. 8. Acute renal failure. 9. Right bundle branch block. 10. History of ventilator-dependent respiratory failure, history of tracheostomy, history of chronic obstructive pulmonary disease exacerbation, history of right bundle branch block, history of hypothy roidism, history of type 1 insulin-requiring diabetes mellitus, history of dyslipidemia, history of m ultiple abdominal surgeries, history of gastrostomy jejunostomy, history of colostomy, history of calvin rogenic bladder, history of severe gait dysfunction, bedridden status and functional quadriplegia. PLAN: At this time, patient has been ordered dneis cultures. Blood, urine cultures ordered. Lab data ordered. CT abdomen and pelvis ordered. The patient has been ordered a broad spectrum IV antibioti c. IV fluid has been started 0.9 normal saline. CURRENT CONSULTATIONS: Infectious disease, Dr. White. Surgery, Dr. Torres. Nephrology, Dr. Martinez and Dr. Chavez. At present, patient's other diagnostic tests are pending, which will be reviewed. The patient's next of kin, Pavithra Cheek, was attempted to be contacted, phone was not answered by an y person. At present, patient was seen and evaluated in the Emergency Room in bed 2. At present, padilla olea's further management will be dependent on the patient's clinical condition, hemodynamic status, and as per patient response to therapeutic intervention and as per patient's diagnostic test results and as per recommendation by all the physicians involved in the care of the patient. In view of patient's multiple comorbidities and severely deconditioned status, patient's overall prog nosis is guarded to poor. Dictated and electronically signed, not read. Dom Aceves MD cc: [id number] TT: 09/20/2016 20:42:29 sn
[2016-09-20] MEDS ORDERED: Sodium Chloride 0.9% 1,000 ML IV STA (21:08)
[2016-09-20] MEDS ORDERED: Pneumococcal 23-Valent Vaccine IM ONE (23:13)
[2016-09-20] MEDS: Insulin Detemir 100 units/ml Vial (Levemir) SC SCH (23:16)
[2016-09-21] MEDS ORDERED: Piperacillin/Tazobact 2.25gm 2.25 GM/100 ML BAG IVPB SCH ×2 (00:15→06:00)
[2016-09-21] MEDS: Insulin Lispro (humaLOG) LOW Coverage SC SCH ×4 (05:55→23:19)
--- NOTE | 2016-09-21 06:27 | CP.PCM.PN ---
Subjective - Date & Time of Evaluation Date of Evaluation: 09/21/16 Time of Evaluation: 06:24 - Subjective Subjective: Gen Sx; Dr Torres Pt S&E. NAEO. Pt denies and change in status. Still with pain on skin excoriation around J-tube site. Denies N/V. CT read as no acute changes but small collection in lower lobes concerning for early pneumonia Objective - Vital Signs/Intake and Output Vital Signs (last 24 hours): Temp Pulse Resp BP Pulse Ox 98.2 F 80 18 129/55 L 99 09/20/16 23:02 09/21/16 06:08 09/20/16 23:02 09/21/16 06:08 09/20/16 17:40 Intake and Output: 09/20/16 09/21/16 18:59 06:59 Intake Total 0 Output Total 300 Balance -300 - Medications Medications: Current Medications Acetylcysteine (Acetylcysteine 20%) 1 ml [facility]H QID [facility] Last Admin: 09/20/16 14:39 Dose: 1 ml Albuterol/Ipratropium (Duoneb 3 Mg/0.5 Mg (3 Ml) Ud) 3 ml IH QIDRESP [facility] Last Admin: 09/20/16 17:04 Dose: 3 ml Atorvastatin Calcium (Lipitor) 20 mg JT DAILY [facility] Darbepoetin Pascual (Aranesp) 100 mcg SC MON PAULINE Potassium Chloride 10 meq/ (Sodium Chloride) 1,005 mls @ 100 mls/hr IV .Q10H3M [facility] Stop: 09/24/16 17:44 Piperacillin Sod/Tazobactam Sod (Zosyn 2.25 Gm In 0.9% 100 Ml) 2.25 gm in 100 mls @ 100 mls/hr IVPB Q8 PAULINE PRN Reason: Protocol Stop: 09/21/16 14:59 Last Admin: 09/21/16 06:12 Dose: 100 mls/hr Insulin Detemir (Levemir) 10 unit SC HS [facility] Last Admin: 09/20/16 23:16 Dose: 10 unit Insulin Human Lispro (Humalog Low) 0 units SC Q6H PAULINE PRN Reason: Protocol Last Admin: 09/21/16 05:55 Dose: Not Given Levothyroxine Sodium (Synthroid) 200 mcg PEG ACB [facility] Metoprolol Tartrate (Lopressor) 25 mg PEG Q8 [facility] Last Admin: 09/21/16 06:08 Dose: Not Given Pantoprazole Sodium (Protonix Susp) 40 mg PEG DAILY [facility] Last Admin: 09/20/16 14:39 Dose: 40 mg - Labs Labs: PT 10.7 Seconds (9.9-11.8) 09/20/16 12:45 INR 0.99 (0.93-1.08) 09/20/16 12:45 APTT 28.0 Seconds (23.7-30.8) 09/20/16 12:45 - Constitutional Appears: Chronically Ill - Respiratory Exam Respiratory Exam: absent: Accessory Muscle Use, Respiratory Distress - GI/Abdominal Exam GI & Abdominal Exam: Soft, Tenderness (around J-tube). absent: Distended, Firm Additional comments: significant skin excoriation around Jtube site - Neurological Exam Neurological Exam: Alert, Awake - Skin Skin Exam: Normal Color, Warm Assessment and Plan - Assessment and Plan (Free Text) Assessment: 76F with leukocytosis of unknown origin Plan: given CT findings consider early pneumonia would also recommend UA to r/o UTI pt currently on Zosyn no intra-abdominal pathology suspected will d/w Dr Brian Tapia, DO, PGY2
[2016-09-21 07:02] LABS: ADD MANUAL DIFF? NO
[2016-09-21 07:10] LABS: BASO # 0.02 K/mm3 (0.0-2.0); BASO % 0.2 % (0.0-3.0); EOS # 0.4 (0.0-0.7); EOS % 3.7 % (1.5-5.0); GRAN # 7.73 (1.4-6.5); GRAN % 75.3 % (50.0-68.0); HEMATOCRIT 26.8 % (36.0-48.0); LYMPH # 1.6 (1.2-3.4); LYMPH % 15.4 % (22.0-35.0); MEAN CELL VOLUME 97.8 fL (80.0-105.0); MEAN CORPUSCULAR HGB CONC 31.7 g/dl (31.0-37.0); MEAN PLATELET VOLUME 12.2 fl (7.0-11.0); MONO # 0.6 (0.1-0.6); MONO % 5.4 % (1.0-6.0); PLATELET COUNT 248 10^3/uL (120.0-450.0); RED CELL DISTRIBUTION WIDTH 17.3 % (11.5-14.5); WHITE BLOOD COUNT 10.3 10^3/ul (4.5-11.0)
[2016-09-21 07:53] LABS: ALB/GLOB RATIO 0.9 (1.1-1.8); BILIRUBIN,DIRECT 0.3 mg/dL (0.0-0.4); BILIRUBIN,TOTAL 0.3 mg/dL (0.2-1.3); CALCIUM 8.3 mg/dL (8.4-10.5); TOTAL PROTEIN 6.1 g/dL (5.8-8.3)
[2016-09-21] MEDS: Acetylcysteine 20% Inhal Soln (4ml) INH SCH ×4 (08:02→20:15)
[2016-09-21] MEDS: Albuterol-Ipratrop 3 mg / 0.5 (3 ml) UD IH SCH ×4 (08:02→20:15)
--- NOTE | 2016-09-21 08:14 | CON ---
DATE: 09/20/2016 REASON FOR CONSULTATION: Acute kidney injury, dehydration, leukocytosis, hypokalemia. HISTORY OF PRESENTING ILLNESS: A 76-year-old lady presents from the retirement because of elevated blood pressure with elevated BUN and creatinine . As per the PMD's notes, the patient was treated intermittently with IV fluids in the retirement. She was also found to have an elevated WBC count. Hence, she was transferred to the hospital. The patient is awake, alert, unable to fully cooperate with systems review. She complains of epigastric pain. Denies any nausea, vomiting, diarrhea. PAST MEDICAL AND SURGICAL HISTORY: Mostly obtained from the chart. History of tracheostomy, respiratory failure, COPD, chronic volvulus, PEG placement, colostomy, neurogenic bladder, NIDDM, , pneumonia. FAMILY HISTORY: Not available. SOCIAL HISTORY: Smoking, no alcohol use and denies drug abuse. longterm resident. ALLERGIES: No known drug allergies. MEDICATIONS IN THE SENIOR LIVING: Insulin, Synthroid, Protonix, Lopressor, Crestor, baby aspirin. REVIEW OF SYSTEMS: All systems reviewed, pertinent positives and negatives as per history of present illness . VITAL SIGNS: Blood pressure 140/56, heart rate 91, respiratory rate 20, temperature 99. T-max 99. HEENT: Normocephalic, atraumatic. NECK: Supple. Nontender. LUNGS: Bilateral rhonchi. . CARDIAC: S1, S2. Regular rate and rhythm. No murmur, no rub. ABDOMEN: Distended. Soft. Positive PEG, PEG. Colostomy on the right side. Bowel sounds . : Chronic stasis changes, no edema, dry skin. INTAKE AND OUTPUT: Not charted. LABORATORY DATA: WBC 16, hemoglobin 10.9, hematocrit 33, platelets 293. Sodium 137, potassium 2.5, chloride 91, 29, BUN 155, creatinine 8.1, glucose 276 , calcium 9.9. Uric acid 9.9, magnesium 2.3, , albumin 3.9. CT scan of the abdomen and pelvis in the abdomen and pelvis right lower lobe opacity is more compared to the previous exam. Dilated bowel loop and a right lateral abdominal hernia without evidence of obstruction, no hydronephrosis. ASSESSMENT: 1. Acute kidney injury superimposed on chronic kidney disease stage IV, appears prerenal. 2. Hypokalemia. 3. Alkalemia. 4. Leukocytosis. 5. Non-insulin dependent diabetes mellitus(?). 6. Multiple comorbidities. PLAN: 1. Aggressive hydration, agree with normal saline at 100 mL per hour. 2. Would add potassium 10 mEq to each bag of normal saline. 3. Recommend close monitoring of urine output and electrolytes. 4. No indication for acute dialysis. 5. Herr culture. 6. Empiric antibiotics to cover for infection/healthcare-associated pneumonia. 7. dose all antibiotics for creatinine clearance less than 10. 8. Monitor electrolytes . Lety Chavez MD cc: [id number] TT: 09/21/2016 00:00:27 Confirmation # [id number] Dictation # [id number] ln MTDD
[2016-09-21] MEDS ORDERED: Potassium Chloride 40 mEq/30 ml LIQ UD PEG STA (08:28)
[2016-09-21 08:29] LABS: POTASSIUM 2.8 mmol/L (3.6-5.0)
[2016-09-21] MEDS: Levothyroxine 200 MCG TAB PEG SCH (08:51)
[2016-09-21] MEDS: Pantoprazole 40 mg Susp UD PEG SCH (09:31)
[2016-09-21] MEDS: Meropenem 500 MG in Sodium Chloride 0.9% 100 ML IVPB SCH ×2 (09:31→23:20)
[2016-09-21 09:38] LABS: CHOLESTEROL 137 mg/dL (130-200)
[2016-09-21 09:55] LABS: FREE T4 1.25 ng/dL (0.78-2.19); T4 6.2 ug/dL (5.5-11.0)
[2016-09-21 10:08] LABS: THYROID STIMULATING HORMONE 0.67 mIU/mL (0.46-4.68)
--- NOTE | 2016-09-21 11:26 | PN ---
DATE: 09/21/2016 The patient is seen in room 569, bed 1. In the morning, I already spoke to the patient's [id number], Pavithra . I have explained to the patient's [id number] about patient's test results, diagnostic data and significant change in her diagnostic lab results and patient's condition was overall explained to the patient's next of kin, Pavithra , at length in layman's language. All questions and concerns answered. Today, patient is seen in room 569, bed 1. The patient is lying in the bed. The patient is comfortable, does not appear to be in distress. Overnight nurse's notes were reviewed. The patient had a bladder scan done, which shows 0 mL of urine in the bladder. The patient was started on Jevity feeding. PHYSICAL EXAMINATION: VITAL SIGNS: T-max is 99, heart rate 43-727-76-93, blood pressure 129/55, 148/ 90, respirations 22, O2 sat 99% on trach collar. HEAD: Normocephalic, atraumatic. HEENT: Shows pale conjunctivae, positive tracheostomy collar. NECK: Positive soft carotid bruit. CHEST: Kyphosis. Positive rhonchi upper lung dunaway anteriorly, posteriorly bilaterally. CARDIOVASCULAR: S1, S2, regular rhythm. Questionable soft systolic murmur left sternal border, right second intercostal space. ABDOMEN: Soft, positive bowel sounds. Positive jejunostomy, gastrostomy and positive colostomy noted. GENITALIA: Female. Positive Hahn catheter, no urine noted. EXTREMITIES: Shows trace swelling of the lower extremities, no pitting edema. VASCULAR: Palpable pulses. MUSCULOSKELETAL: Shows a body mass index of 28. NEUROLOGIC: The patient is alert, awake, responsive, lying in the bed. Cranial nerves II-XII limited. Gait examination could not be tested. DIAGNOSTICS: 09/21, WBC 10.3, hemoglobin and hematocrit 8.5 and 26.8, platelets 248, granulocytes 75. Glucose 276, 278. Sodium 139, potassium 2.8, chloride 100, CO2 25, anion gap 17, BUN 138, creatinine 8.0, GFR 6. Lactic acid 1.3, uric acid 9.9. Calcium 8.3. LFTs are normal, albumin 2.9. Triglyceride 407, cholesterol 137, LDL 50, HDL 25. TSH 0.67. T4 6.2. Blood type A positive. CAT scan of the abdomen and pelvis was done without contrast, which was noted. Right lower lobe pneumonia, atelectasis noted. EKG shows baseline artifact, sinus rhythm, right bundle branch block. The patient was evaluated in the Emergency Room by the ER physician. IMPRESSION AND PLAN: 1. Acute renal failure. 2. Low-grade fever. 3. History of hypertension. 4. Questionable systemic inflammatory response syndrome versus questionable sepsis. 5. Leukocytosis with granulocytosis. 6. Normocytic anemia with decreasing hemoglobin and hematocrit. 7. Hypokalemia. 8. Acute renal failure. 9. Anuric renal failure. 10. Insulin requiring diabetes mellitus. 11. Hyperuricemia. 12. Hypoalbuminemia. 13. History of respiratory failure and tracheostomy placement. 14. Hypertriglyceridemia, but decreased HDL. 15. History of hypothyroidism. 16. Right bundle branch block. 17. Right lower lobe atelectasis versus pneumonia and opacity. 18. Mildly dilated common bile duct with possible prior cholecystectomy. 19. Status post gastrostomy and colostomy. 20. Anuric renal failure. 21. Severe gait dysfunction and deconditioning with bedridden status and functional quadriplegia. 22. Right bundle branch block with age-indeterminate inferior infarct. 23. Leukocytosis with granulocytosis. 24. History of dyslipidemia, history of diabetic gastroparesis, history of hypothyroidism, history of insulin-requiring diabetes mellitus, history of chronic iron deficiency normocytic anemia. 25. History of tracheostomy. 26. History of decubitus ulceration. 1. Acute renal failure with worsening BUN, creatinine with creatinine going up to greater than 8. 2. Probable prerenal kidney injury and acute renal failure. 3. Leukocytosis with granulocytosis. 4. Chronic normocytic iron deficiency anemia. 5. Hemoconcentration and severe dehydration and hypovolemia. 6. Right bundle branch block. 7. Questionable recurrent chronic urinary tract infection versus colonization. 8. Acute renal failure. 9. Right bundle branch block. 10. History of ventilator-dependent respiratory failure, history of tracheostomy, history of chronic obstructive pulmonary disease exacerbation, history of right bundle branch block, history of hypothyroidism, history of type 1 insulin-requiring diabetes mellitus, history of dyslipidemia, history of multiple abdominal surgeries, history of gastrostomy jejunostomy, history of colostomy, history of neurogenic bladder, history of severe gait dysfunction, bedridden status and functional quadriplegia. PLAN: At this time, patient has been ordered serial labs. Blood, urine cultures are ordered. CURRENT CONSULTATIONS: 1. Surgery. 2. Infectious disease. 3. Nephrology. In addition, patient will be ordered a podiatry consultation for podiatry care. The patient has been ordered following medications: 1. Mucomyst nebulizer treatment with DuoNeb nebulizer treatment 4 times a day. 2. Aranesp 100 mcg Sunday. 3. The patient is on vibramycin 100 mg IV q. 12. 4. Humalog low dose sliding scale coverage q. 6. 5. Levemir 10 units at bedtime. 6. Lipitor 20 mg daily. 7. Lopressor 25 mg q. 8. 8. Meropenem 500 IV q. 12. 9. The patient has been supplemented with potassium. 10. Protonix 40 via the PEG. 11. IV fluids 0.9 normal saline at 100 mL an hour with KCl 10 mEq ordered by nephrology. 12. The patient's Synthroid may need to be decreased since patient's TSH is extremely low and T4 is , but we will monitor that later. The patient received Unasyn 1.5 grams yesterday and vancomycin 1 gram. The patient's renal ultrasound is ordered. The patient has been ordered specialty mattress, decubitus position, reposition every 2 hours, tube feeding Jevity ordered, blood transfusion ordered 1 unit. I have extensively spoken to the patient's next of kin, Pavithra , on the phone. The patient's DNR/DNI was reinstated as per the POLST form, which also states no dialysis, which Pavithra has clearly indicated again today that patient would not be requiring dialysis as per the POLST form and patient will be continued as DNR/DNI. Overall, patient's prognosis is guarded to poor. Family and next of kin aware. Dictated and electronically signed. Dom Aceves MD cc: [id number] TT: 09/21/2016 11:25:36 Confirmation # [id number] Dictation # [id number] en [facility]
--- NOTE | 2016-09-21 14:50 | CP.PCM.PCO ---
Physician Communication Note - Physician Communication Note Physician Communication Note: Severe prerenal insufficiency-cellulitis PEG Site
--- NOTE | 2016-09-21 14:51 | US ---
PROCEDURE: Ultrasound of the Kidneys HISTORY: retention COMPARISON: None available. TECHNIQUE: Sonogram of the kidneys. FINDINGS: RIGHT KIDNEY: Measures: 6.3 x 10.3 cm. Normal in size, contour and echogenicity. No stone, solid mass lesion or hydronephrosis visualized. LEFT KIDNEY: Measures: 5.8 x 12.2 cm. Normal in size, contour and echogenicity. No stone, solid mass lesion or hydronephrosis visualized. Simple cyst lower pole 2.1 x 2.3 cm. OTHER FINDINGS: None. IMPRESSION: No significant or acute findings to account for/ related to the clinical presentation.
--- NOTE | 2016-09-21 16:03 | PN ---
DATE: 09/21/2016 SUBJECTIVE: The patient is seen lying in bed. She is awake, she is alert. Family member is at beds marquise. She is asking for water. PHYSICAL EXAMINATION: GENERAL: Obese, elderly lady, lying in bed. VITAL SIGNS: Blood pressure 129/55, heart rate 80, respiratory rate 22, temperature 97.7. HEENT: Normocephalic, atraumatic. NECK: Supple, no JVD. LUNGS: Bilateral equal air entry, no rales. CARDIAC: S1, S2, regular rate and rhythm, no murmur, no rub. ABDOMEN: Obese, distended, soft, positive PEG, positive colostomy, bowel sounds present. EXTREMITIES: No lower extremity edema. INTAKE AND OUTPUT: 2780/800. LABORATORY DATA: WBC 10, hemoglobin 8.5, hematocrit 27, platelets 248. Sodium 139, potassium 2.8, c hloride 100, CO2 25, BUN 138, creatinine 8.0, glucose 278. Lactic acid 1.3, uric acid 9.9, calcium 8 .3, magnesium 2.3, albumin 2.9. Blood cultures, no growth so far. CURRENT MEDICATIONS: Mucomyst, Aranesp 100, Bactroban, doxycycline 100 q. 12, DuoNeb, insulin, Lipit or. MEDICATION LIST: Lopressor 25 q. 8 via PEG, Meropenem 500 q. 12, normal saline at 100 mL and hour wi th 10 mEq of KCI, Protonix, Synthroid. ASSESSMENT: 1. Acute kidney injury superimposed on chronic kidney disease stage IV, largely prerenal azotemia. 2. Severe hypokalemia. 3. Anion gap metabolic acidosis. 4. Hypoalbuminemia. 5. Severe anemia. PLAN: 1. Continue IV fluids with potassium. 2. KCI elixir via PEG. 3. Check iron stores. 4. Monitor urine output. 5. Monitor daily electrolytes. 6. Check phosphorus levels. 7. Follow up urine culture results. Lety Chavez MD cc: [id number] TT: 09/21/2016 14:15:08 Confirmation # [id number] Dictation # [id number] en 09/21/2016 15:02:47
[2016-09-21 16:14] LABS: PHOSPHOROUS 4.5 mg/dL (2.5-4.5)
[2016-09-21 16:31] LABS: IRON 50 ug/dL (45-180)
--- NOTE | 2016-09-21 19:22 | CP.PCM.CON ---
History of Present Illness - History of Present Illness History of Present Illness: 75 year old female with PMH of tracheostomy tube placement, COPD, chronic CHF, DM, S/P PEG tube placement, chronic renal failure Stage 4, chronic higgins catheter use due to neurogenic bladder was brought in to [facility] because of abnormal labs found in the detention with elevated BUN and creatinine, leukocytosis. The patient is complaining of mild abdominal pain and mild SOB at rest. She denies fever or chills, no nausea, no vomiting, no chest pain, no joint pains, no dysuria, no dysphagia, no sore throat, no headache or dizziness, no lightheadedness, no cough. In the ED, CT abdomen and pelvis revealed right lower lobe opacity. Infectious Diseases consult is requested to further evaluate and manage. Social history: patient lives in a detention, has a significant smoking history, denies alcohol abuse or illicit drug use Review of Systems - Review of Systems All systems: reviewed and no additional remarkable complaints except (as per HPI ) Past Patient History - Infectious Disease Hx of Infectious Diseases: None - Tetanus Immunizations Tetanus Immunization: Unknown - Past Social History Smoking Status: Former Smoker - CARDIAC Hx Congestive Heart Failure: Yes Hx Hypertension: Yes Hx Peripheral Vascular Disease: Yes - PULMONARY Hx Asthma: Yes Hx Bronchitis: Yes Hx Chronic Obstructive Pulmonary Disease (COPD): Yes Hx Emphysema: Yes Hx Pneumonia: Yes Hx Respiratory Tract Infection: Yes Other/Comment: pt has trach - NEUROLOGICAL HX Cerebrovascular Accident: Yes Other/Comment: gout - HEENT Hx Glaucoma: Yes - RENAL Hx Chronic Kidney Disease: No Hx Dialysis: No Hx Kidney Stones: No Hx Neurogenic Bladder: No Hx Pyelonephritis: No Hx Renal (Kidney) Cancer: No Hx Renal Failure: No Other/Comment: acute renal failure - ENDOCRINE/METABOLIC Hx Diabetes Mellitus Type 2: Yes - HEMATOLOGICAL/ONCOLOGICAL Hx Anemia: Yes - INTEGUMENTARY Hx Dermatological Problems: No Hx Basil Cell: No Hx Eczema: No Hx Melanoma: No Hx Psoriasis: No Hx Squamous Cell: No - MUSCULOSKELETAL/RHEUMATOLOGICAL Hx Falls: No Hx Gout: Yes Hx Spinal Stenosis: Yes - GASTROINTESTINAL Hx Colostomy: Yes Hx Gastroesophageal Reflux: Yes HX Swallowing Problems: Yes Other/Comment: hx tube feeding;g-tube - GENITOURINARY/GYNECOLOGICAL Hx Urinary Tract Infection: Yes Other/Comment: 2w higgins - PSYCHIATRIC Hx Depression: Yes Hx Substance Use: No - SURGICAL HISTORY Hx Amputation: No Hx Appendectomy: No Hx Cardiac Catheterization: No Hx Cholecystectomy: No Hx Coronary Stent: No Hx Gastric Bypass Surgery: No Hx Hysterectomy: No Hx Joint Replacement: No Hx Kidney Transplant: No Hx Liver Transplant: No Hx Mastectomy: No Hx Musculoskeletal Surgery: No Hx Open Heart Surgery: No Hx Orthopedic Surgery: No Hx Splenectomy: No Hx Valve Replacement: No - ANESTHESIA Hx Anesthesia: No Hx Anesthesia Reactions: No Hx Malignant Hyperthermia: No Meds Allergies/Adverse Reactions: Allergies Allergy/AdvReac Type Severity Reaction Status Date / Time No Known Allergies Allergy Verified 09/20/16 13:05 - Medications Medications: Current Medications Acetylcysteine (Acetylcysteine 20%) 1 ml INH QID [facility] Last Admin: 09/20/16 14:39 Dose: 1 ml Albuterol/Ipratropium (Duoneb 3 Mg/0.5 Mg (3 Ml) Ud) 3 ml IH QIDRESP [facility] Last Admin: 09/20/16 17:04 Dose: 3 ml Atorvastatin Calcium (Lipitor) 20 mg JT DAILY [facility] Darbepoetin Pascual (Aranesp) 100 mcg SC MON [facility] Sodium Chloride (Sodium Chloride 0.9%) 1,000 mls @ 100 mls/hr IV .Q10H [facility] Stop: 09/24/16 17:44 Last Admin: 09/20/16 14:00 Dose: 100 mls/hr Insulin Detemir (Levemir) 10 unit SC HS [facility] Insulin Human Lispro (Humalog Low) 0 units SC Q6H [facility] PRN Reason: Protocol Last Admin: 09/20/16 14:37 Dose: 3 units Levothyroxine Sodium (Synthroid) 200 mcg PEG ACB [facility] Metoprolol Tartrate (Lopressor) 25 mg PEG Q8 [facility] Last Admin: 09/20/16 14:19 Dose: 25 mg Pantoprazole Sodium (Protonix Susp) 40 mg PEG DAILY [facility] Last Admin: 09/20/16 14:39 Dose: 40 mg Physical Exam - Constitutional Appears: Non-toxic, No Acute Distress - Head Exam Head Exam: NORMAL INSPECTION - Neck Exam Neck exam: Negative for: Lymphadenopathy, Meningismus - Respiratory Exam Respiratory Exam: Decreased Breath Sounds - Cardiovascular Exam Cardiovascular Exam: +S1, +S2 - GI/Abdominal Exam GI & Abdominal Exam: Soft. absent: Tenderness Additional comments: PEG tube in place Results - Vital Signs Recent Vital Signs: Last Vital Signs Temp 98.2 F 09/20/16 17:00 Pulse 100 H 09/20/16 17:00 Resp 18 09/20/16 17:00 BP 148/90 09/20/16 17:00 Pulse Ox 99 09/20/16 17:00 - Labs Result Diagrams: 09/21/16 06:30 09/21/16 06:30 Labs: Laboratory Results - last 24 hr 09/20/16 13:48 Uric Acid 9.9 H Assessment & Plan - Assessment and Plan (Free Text) Plan: assessment Systemic Inflammatory Response Syndrome, consider severe sepsis with acute on chronic renal failure due to right lower lobe healthcare-associated pneumonia with possible gram positive cocci and/or gram negative bacilli S/P PEG tube placement diabetes mellitus anemia decubitus ulcers hypertension Plan started patient on Doxycycline, Meropenem and a dose of Vanco IV pending blood, urine cx, PCT; reviewed CT abdomen and pelvis which showed the right lower lobe opacity Will monitor clinically
[2016-09-21] MEDS: Insulin Detemir 100 units/ml Vial (Levemir) SC SCH (23:12)
[2016-09-22] MEDS: Insulin Lispro (humaLOG) LOW Coverage SC SCH ×4 (00:05→18:16)
[2016-09-22 06:59] LABS: ADD MANUAL DIFF? NO
[2016-09-22 07:14] LABS: BASO # 0.03 K/mm3 (0.0-2.0); BASO % 0.3 % (0.0-3.0); EOS # 0.5 (0.0-0.7); EOS % 4.7 % (1.5-5.0); GRAN # 8.58 (1.4-6.5); GRAN % 75.2 % (50.0-68.0); HEMATOCRIT 31.8 % (36.0-48.0); LYMPH # 1.7 (1.2-3.4); LYMPH % 14.6 % (22.0-35.0); MEAN CELL VOLUME 95.5 fL (80.0-105.0); MEAN CORPUSCULAR HEMOGLOBIN 30.3 pg (25.0-35.0); MEAN CORPUSCULAR HGB CONC 31.8 g/dl (31.0-37.0); MEAN PLATELET VOLUME 11.9 fl (7.0-11.0); MONO # 0.6 (0.1-0.6); MONO % 5.2 % (1.0-6.0); PLATELET COUNT 232 10^3/uL (120.0-450.0); RED CELL DISTRIBUTION WIDTH 18.4 % (11.5-14.5); WHITE BLOOD COUNT 11.4 10^3/ul (4.5-11.0)
[2016-09-22] MEDS: Acetylcysteine 20% Inhal Soln (4ml) INH SCH ×4 (07:30→20:40)
[2016-09-22] MEDS: Albuterol-Ipratrop 3 mg / 0.5 (3 ml) UD IH SCH ×4 (07:30→20:41)
[2016-09-22 07:35] LABS: ALB/GLOB RATIO 0.9 (1.1-1.8); BILIRUBIN,DIRECT 0.4 mg/dL (0.0-0.4); BILIRUBIN,TOTAL 0.4 mg/dL (0.2-1.3); CALCIUM 8.5 mg/dL (8.4-10.5); POTASSIUM 3.4 mmol/L (3.6-5.0); TOTAL PROTEIN 6.5 g/dL (5.8-8.3)
[2016-09-22] MEDS ORDERED: Potassium Chloride 40 mEq/30 ml LIQ UD PEG ONE (08:29)
[2016-09-22] MEDS: Meropenem 500 MG in Sodium Chloride 0.9% 100 ML IVPB SCH (10:27)
[2016-09-22] MEDS: Pantoprazole 40 mg Susp UD PEG SCH (10:28)
[2016-09-22] MEDS: Potassium Chloride 20 mEq/15 ml LIQ UD GT SCH ×2 (10:28→18:18)
[2016-09-22] MEDS: Levothyroxine 200 MCG TAB PEG SCH (10:29)
--- NOTE | 2016-09-22 12:00 | PN ---
DATE: 09/22/2016 The patient is seen in room 569, bed 1. The patient is seen lying in the bed. The patient is comfortable. Overnight nurse's notes were reviewed. The patient had leaking from the gastrostomy tube site for which patient has been consulted with Dr. Torres. Dressing was changed multiple times. The patient is lying in the bed comfortably. PHYSICAL EXAMINATION: VITAL SIGNS: T-max 98.6, heart rate 74-88, blood pressure 130/76, 130/68, 155/ 46, 129/55, 132/68, 129/55, 148/90, respirations 20, O2 sat is 98%-99%. HEAD: Normocephalic, atraumatic. HEENT: Shows pinkish, pale conjunctivae. NECK: Positive tracheostomy noted. CHEST: Positive kyphosis, positive occasional rhonchi upper lung field. CARDIOVASCULAR: Shows S1, S2. Regular rhythm. ABDOMEN: Shows multiple surgical scars. Positive skin changes of the gastrostomy tube site. Positive colostomy, positive jejunostomy. GENITALIA: Female. Positive Hahn catheter. EXTREMITIES: Shows trace swelling of the lower extremity, no pitting edema, no calf tenderness, no David sign. MUSCULOSKELETAL: Shows a body mass index of 28. NEUROLOGIC: The patient is awake, responsive. Unable to communicate because of tracheostomy. PSYCHIATRIC: Not applicable. GAIT: Could not be tested as the patient is bedridden. CODE STATUS: DNR/DNI. DIAGNOSTICS: 07/23: WBC count has come down to 11.4, hemoglobin and hematocrit has gone up to 10.1 and 31.8 after transfusion, platelet 232, granulocytes 75. Sodium 142, potassium is up to 3.4 from 2.8, chloride 105, CO2 of 23, anion gap 17, BUN 133, down from 155, creatinine is down to 7.5 from 8.1, GFR is 6. Glucose 178, hemoglobin A1c is 7.0. Lactic acid is 1.3. Uric acid is 9.9. Calcium is 8.5. LFTs are normal. Triglyceride 407. Vitamin D less than 13. Thyroid panel is negative. Procalcitonin level is negative. Blood cultures no growth. Blood type A positive. Renal ultrasound which was done on 09/20 was reviewed. CAT scan of the abdomen and pelvis was reviewed. IMPRESSION AND PLAN: 1. Acute renal failure with severe prerenal kidney injury. 2. Feeding dysfunction and gastrostomy tube malfunction. 3. Systemic inflammatory response syndrome with possible sepsis with acute renal failure with underlying chronic kidney disease. 4. Right lower lobe healthcare-associated pneumonia, atelectasis and infiltrate. 5. Decubitus ulceration. 6. Severe gait dysfunction and bedridden status and functional quadriplegia. 7. Gastrostomy tube site cellulitis. 8. Underlying chronic kidney disease stage III/IV. 9. Severe hypokalemia. 10. Anion gap metabolic acidosis. 11. Protein malnutrition and hypoalbuminemia. 12. Anemia. 13. Iron deficiency anemia. 14. Low-grade fever. 15. History of hypertension. 16. Tracheostomy, gastrostomy, colostomy. 17. Leukocytosis with granulocytosis. 18. Normocytic anemia. 19. Status post packed red blood cell transfusion. 20. Hypokalemia. 21. Hyperuricemia. 22. Type 1 insulin-requiring diabetes mellitus with hemoglobin A1c of 7.0. 23. Hyperuricemia. 24. Hypertriglyceridemia with decreased HDL. 25. Hypovitaminosis D. 26. Status post packed red blood cell transfusion x 1. 27. Right lower lobe atelectasis, pneumonia and left lung base opacity. 28. Mildly dilated common bile duct secondary to cholecystectomy. 29. Diffuse atherosclerotic calcification. 30. Status post gastrostomy and colostomy. 31. Status post transverse and descending colon resection. 32. Neurogenic bladder. 33. Sacral decubitus ulceration. 34. Right bundle branch block, age-indeterminate inferior infarct. 35. Hypokalemia. 36. History of ventilator-dependent respiratory failure. 37. History of tracheostomy. 38. History of chronic obstructive pulmonary disease. 39. History of hypothyroidism. 40. History of type 1 diabetes mellitus. 41. History of dyslipidemia. 42. History of multiple abdominal surgeries. 43. History of gastrostomy, jejunostomy, colostomy. 44. History of neurogenic bladder. 45. History of functional quadriplegia. 1. Acute renal failure. 2. Low-grade fever. 3. History of hypertension. 4. Questionable systemic inflammatory response syndrome versus questionable sepsis. 5. Leukocytosis with granulocytosis. 6. Normocytic anemia with decreasing hemoglobin and hematocrit. 7. Hypokalemia. 8. Acute renal failure. 9. Anuric renal failure. 10. Insulin requiring diabetes mellitus. 11. Hyperuricemia. 12. Hypoalbuminemia. 13. History of respiratory failure and tracheostomy placement. 14. Hypertriglyceridemia, but decreased HDL. 15. History of hypothyroidism. 16. Right bundle branch block. 17. Right lower lobe atelectasis versus pneumonia and opacity. 18. Mildly dilated common bile duct with possible prior cholecystectomy. 19. Status post gastrostomy and colostomy. 20. Anuric renal failure. 21. Severe gait dysfunction and deconditioning with bedridden status and functional quadriplegia. 22. Right bundle branch block with age-indeterminate inferior infarct. 23. Leukocytosis with granulocytosis. 24. History of dyslipidemia, history of diabetic gastroparesis, history of hypothyroidism, history of insulin-requiring diabetes mellitus, history of chronic iron deficiency normocytic anemia. 25. History of tracheostomy. 26. History of decubitus ulceration. 1. Acute renal failure with worsening BUN, creatinine with creatinine going up to greater than 8. 2. Probable prerenal kidney injury and acute renal failure. 3. Leukocytosis with granulocytosis. 4. Chronic normocytic iron deficiency anemia. 5. Hemoconcentration and severe dehydration and hypovolemia. 6. Right bundle branch block. 7. Questionable recurrent chronic urinary tract infection versus colonization. 8. Acute renal failure. 9. Right bundle branch block. 10. History of ventilator-dependent respiratory failure, history of tracheostomy, history of chronic obstructive pulmonary disease exacerbation, history of right bundle branch block, history of hypothyroidism, history of type 1 insulin-requiring diabetes mellitus, history of dyslipidemia, history of multiple abdominal surgeries, history of gastrostomy jejunostomy, history of colostomy, history of neurogenic bladder, history of severe gait dysfunction, bedridden status and functional quadriplegia. PLAN: At this time, the patient has been followed by infectious disease, surgery, nephrology, and podiatry. Serial labs have been ordered. We are still awaiting for the urine culture, sputum culture result. CURRENT MEDICATIONS: DuoNeb nebulizer with Mucomyst nebulizer 4 times a day, Aranesp 100 mcg subQ Sunday, Bactroban cream to the affected area twice a day, Humalog low dose sliding scale coverage q. 6, Levemir 10 units at bedtime, Lipitor 20 mg daily, Lopressor 25 mg q. 8, Meropenem 500 IV q. 12. The patient has been supplemented with potassium because of hypokalemia. Protonix 40 mg daily via the PEG, IV fluids 0.9 normal saline with 10 mEq of KCl at 100 mL an hour, Synthroid 200 mcg daily. The patient has been ordered intake, output, strict I's and O's done. Turn and reposition every 2 hours. Tube feeding has been ordered. Occupational therapy , physical therapy, speech therapy ordered. At present, patient's next of kin and power of ekg monitor tech, Pavithra Cheek, was contacted and the patient's condition , diagnosis, test results, recommendations by all physicians involved in the care of the patient was discussed and explained to Pavithra Cheek. She has requested to continue the DNR/DNI and also patient's next of kin has declined any aggressive treatment including dialysis. So at present, we will continue with the above therapeutic intervention with the recommendation awaiting from infectious disease regarding the duration of IV antibiotic, meropenem. We will continue with hydration, with serial monitoring of the labs on a daily basis and monitoring of patient's clinical condition, hemodynamic status, and other status. The patient continues to be DNR/DNI. Dictated and electronically signed, not read. Dom Aceves MD cc: [id number] TT: 09/22/2016 12:00:15 Confirmation # [id number] Dictation # [id number] jose antonio [email or web address]
--- NOTE | 2016-09-22 12:23 | CP.PCM.CON ---
<Luzmaria Cruz - Last Filed: 09/22/16 12:20> History of Present Illness - History of Present Illness History of Present Illness: PODIATRY CONSULT NOTE: Ms. Smith is a 76 yo female patient w/ pmhx sign. for COPD, CHF, DM, HTN, CKD seen at bedside today with Dr. Ace following request for podiatry consult. Pt seen resting in bed at time of visit. Pt is alert, denies any pain or discomfort to the lower extremities at this time. Denies any other pedal complaints. Review of Systems - Review of Systems Review of Systems: All systems reviewed and found to be negative save pertinent HPI findings above Past Patient History - Infectious Disease Hx of Infectious Diseases: None - Tetanus Immunizations Tetanus Immunization: Unknown - Past Social History Smoking Status: Former Smoker - CARDIAC Hx Congestive Heart Failure: Yes Hx Hypertension: Yes Hx Peripheral Vascular Disease: Yes - PULMONARY Hx Asthma: Yes Hx Bronchitis: Yes Hx Chronic Obstructive Pulmonary Disease (COPD): Yes Hx Emphysema: Yes Hx Pneumonia: Yes Hx Respiratory Tract Infection: Yes Other/Comment: pt has trach - NEUROLOGICAL HX Cerebrovascular Accident: Yes Other/Comment: gout - HEENT Hx Glaucoma: Yes - RENAL Hx Chronic Kidney Disease: No Hx Dialysis: No Hx Kidney Stones: No Hx Neurogenic Bladder: No Hx Pyelonephritis: No Hx Renal (Kidney) Cancer: No Hx Renal Failure: No Other/Comment: acute renal failure - ENDOCRINE/METABOLIC Hx Diabetes Mellitus Type 2: Yes - HEMATOLOGICAL/ONCOLOGICAL Hx Anemia: Yes - INTEGUMENTARY Hx Dermatological Problems: No Hx Basil Cell: No Hx Eczema: No Hx Melanoma: No Hx Psoriasis: No Hx Squamous Cell: No - MUSCULOSKELETAL/RHEUMATOLOGICAL Hx Falls: No Hx Gout: Yes Hx Spinal Stenosis: Yes - GASTROINTESTINAL Hx Colostomy: Yes Hx Gastroesophageal Reflux: Yes HX Swallowing Problems: Yes Other/Comment: hx tube feeding;g-tube - GENITOURINARY/GYNECOLOGICAL Hx Urinary Tract Infection: Yes Other/Comment: 2w higgins - PSYCHIATRIC Hx Depression: Yes Hx Substance Use: No - SURGICAL HISTORY Hx Amputation: No Hx Appendectomy: No Hx Cardiac Catheterization: No Hx Cholecystectomy: No Hx Coronary Stent: No Hx Gastric Bypass Surgery: No Hx Hysterectomy: No Hx Joint Replacement: No Hx Kidney Transplant: No Hx Liver Transplant: No Hx Mastectomy: No Hx Musculoskeletal Surgery: No Hx Open Heart Surgery: No Hx Orthopedic Surgery: No Hx Splenectomy: No Hx Valve Replacement: No - ANESTHESIA Hx Anesthesia: No Hx Anesthesia Reactions: No Hx Malignant Hyperthermia: No Meds Allergies/Adverse Reactions: Allergies Allergy/AdvReac Type Severity Reaction Status Date / Time No Known Allergies Allergy Verified 09/20/16 13:05 - Medications Medications: Current Medications Acetylcysteine (Acetylcysteine 20%) 1 ml INH QIDRESP [facility] Last Admin: 09/22/16 11:30 Dose: 1 ml Albuterol/Ipratropium (Duoneb 3 Mg/0.5 Mg (3 Ml) Ud) 3 ml IH QIDRESP [facility] Last Admin: 09/22/16 11:30 Dose: 3 ml Atorvastatin Calcium (Lipitor) 20 mg JT DAILY [facility] Last Admin: 09/22/16 10:27 Dose: 20 mg Darbepoetin Pascual (Aranesp) 100 mcg SC MON [facility] Potassium Chloride 10 meq/ (Sodium Chloride) 1,005 mls @ 100 mls/hr IV .Q10H3M [facility] Stop: 09/24/16 17:44 Last Admin: 09/21/16 23:21 Dose: 100 mls/hr Meropenem 500 mg/ Sodium (Chloride) 100 mls @ 100 mls/hr IVPB Q12 [facility] PRN Reason: Protocol Stop: 09/28/16 10:01 Last Admin: 09/22/16 10:27 Dose: 100 mls/hr Doxycycline Hyclate 100 mg/ (Sodium Chloride) 100 mls @ 100 mls/hr IVPB Q12 [facility] PRN Reason: Protocol Last Admin: 09/22/16 10:29 Dose: 100 mls/hr Insulin Detemir (Levemir) 10 unit SC HS [facility] Last Admin: 09/21/16 23:12 Dose: 10 unit Insulin Human Lispro (Humalog Low) 0 units SC Q6 [facility] PRN Reason: Protocol Last Admin: 09/22/16 06:26 Dose: 2 units Lactic Acid (Lac-Hydrin 12% Cream (140 G)) 0 ea TOP BID [facility] Levothyroxine Sodium (Synthroid) 200 mcg PEG ACB [facility] Last Admin: 09/22/16 10:29 Dose: 200 mcg Metoprolol Tartrate (Lopressor) 25 mg PEG Q8 [facility] Last Admin: 09/22/16 06:28 Dose: Not Given Mupirocin (Bactroban Ointment) 0 gm TOP BID [facility] Last Admin: 09/22/16 10: Dose: 1 applic Pantoprazole Sodium (Protonix Susp) 40 mg PEG DAILY [facility] Last Admin: 09/22/16 10: Dose: 40 mg Potassium Chloride (Potassium Chloride Oral Soln) 20 meq GT BID [facility] Last Admin: 09/22/16 10: Dose: 20 meq Physical Exam - Constitutional Appears: Non-toxic, No Acute Distress, Chronically Ill - Extremities Exam Additional comments: Bilateral lower extremity exam: VASC- DP pulses strongly palpable bl, PT pulses palpable 1/4 BL, skin temp runs warm to cool BL, cap refill time is < 4 sec to all digits, 2+ pitting edema noted to anterior shins BL, varicosities noted to anterior aspect of distal legs and dorsum of feet bl NEURO- pedal sensation is grossly diminished BL DERM- there are patches of xerotic skin noted to dorsal and plantar surface of feet BL (L>R), there is brown hyperpigmentation noted diffusely to feet BL, no open wounds/ulcerations MSKL- no gross deformities appreciated - Neurological Exam Neurological exam: Alert - Psychiatric Exam Psychiatric exam: Normal Affect, Normal Mood Results - Vital Signs Recent Vital Signs: Last Vital Signs Temp 98 F 09/22/16 08:57 Pulse 88 09/22/16 08:57 Resp 20 09/22/16 08:57 BP 130/76 09/22/16 08:57 Pulse Ox 98 09/21/16 16:00 - Labs Result Diagrams: 09/22/16 06:15 09/22/16 06:15 Labs: Laboratory Results - last 24 hr 09/21/16 09/21/16 09/21/16 08:00 08:00 09:00 WBC RBC Hgb Hct MCV MCH MCHC RDW Plt Count MPV Gran % Lymph % (Auto) [place] % (Auto) Eos % (Auto) Baso % (Auto) Gran # Lymph # [place] # Eos # Baso # Sodium Potassium Chloride Carbon Dioxide Anion Gap BUN Creatinine Est GFR ( Amer) Est GFR (Non-Af Amer) Random Glucose Hemoglobin A1c Calcium Phosphorus 4.5 Magnesium Iron 50 TIBC 219 L % Saturation 23 Ferritin 420.0 Total Bilirubin Direct Bilirubin AST ALT Alkaline Phosphatase Total Protein Albumin Globulin Albumin/Globulin Ratio 25-OH Vitamin D Total Procalcitonin 0.30 05/09/21/16 09/22/16 09:00 09:00 06:15 WBC 11.4 H RBC 3.33 L Hgb 10.1 L Hct 31.8 L MCV 95.5 MCH 30.3 MCHC 31.8 RDW 18.4 H Plt Count 232 MPV 11.9 H Gran % 75.2 H Lymph % (Auto) 14.6 L [place] % (Auto) 5.2 Eos % (Auto) 4.7 Baso % (Auto) 0.3 Gran # 8.58 H Lymph # 1.7 [place] # 0.6 Eos # 0.5 Baso # 0.03 Sodium Potassium Chloride Carbon Dioxide Anion Gap BUN Creatinine Est GFR ( Amer) Est GFR (Non-Af Amer) Random Glucose Hemoglobin A1c 7.0 H Calcium Phosphorus Magnesium Iron TIBC % Saturation Ferritin Total Bilirubin Direct Bilirubin AST ALT Alkaline Phosphatase Total Protein Albumin Globulin Albumin/Globulin Ratio 25-OH Vitamin D Total < 12.8 L Procalcitonin 09/22/16 09/22/16 06:15 10:30 WBC RBC Hgb Hct MCV MCH MCHC RDW Plt Count MPV Gran % Lymph % (Auto) [place] % (Auto) Eos % (Auto) Baso % (Auto) Gran # Lymph # [place] # Eos # Baso # Sodium 142 Potassium 3.4 L Chloride 105 Carbon Dioxide 23 Anion Gap 17 BUN 133 H* Creatinine 7.5 H Est GFR ( Amer) 6 Est GFR (Non-Af Amer) 5 Random Glucose 178 H Hemoglobin A1c Calcium 8.5 Phosphorus Magnesium Cancelled 1.9 Iron TIBC % Saturation Ferritin Total Bilirubin 0.4 Direct Bilirubin 0.4 AST 20 ALT 18 Alkaline Phosphatase 111 Total Protein 6.5 Albumin 3.1 Globulin 3.4 Albumin/Globulin Ratio 0.9 L 25-OH Vitamin D Total Procalcitonin Assessment & Plan - Assessment and Plan (Free Text) Assessment: 76 yo patient w/ pmhx sign for COPD, CHF, DM, HTN, CKD with dyshydrotic changes to pedal skin bl 2/2 diabetic neuropathy Plan: -Pt S&E at bedside with attending Dr. Ace present -Chart, labs and vitals were reviewed. -Ammonium lactate cream ordered, to be applied to BL bid for dry skin -Stable per podiatry -Please re-consult as needed. Thank you for allowing us to participate in the care of this patient. <Reinier Ace - Last Filed: 09/22/16 13:45> Meds - Medications Medications: Current Medications Acetylcysteine (Acetylcysteine 20%) 1 ml INH QIDRESP [facility] Last Admin: 09/22/16 11:30 Dose: 1 ml Albuterol/Ipratropium (Duoneb 3 Mg/0.5 Mg (3 Ml) Ud) 3 ml IH QIDRESP [facility] Last Admin: 09/22/16 11:30 Dose: 3 ml Atorvastatin Calcium (Lipitor) 20 mg JT DAILY [facility] Last Admin: 09/22/16 10:27 Dose: 20 mg Darbepoetin Pascual (Aranesp) 100 mcg SC MON [facility] Potassium Chloride 10 meq/ (Sodium Chloride) 1,005 mls @ 100 mls/hr IV .Q10H3M [facility] Stop: 09/24/16 17:44 Last Admin: 09/21/16 23:21 Dose: 100 mls/hr Meropenem 500 mg/ Sodium (Chloride) 100 mls @ 100 mls/hr IVPB Q12 [facility] PRN Reason: Protocol Stop: 09/28/16 10:01 Last Admin: 09/22/16 10:27 Dose: 100 mls/hr Doxycycline Hyclate 100 mg/ (Sodium Chloride) 100 mls @ 100 mls/hr IVPB Q12 [facility] PRN Reason: Protocol Last Admin: 09/22/16 10:29 Dose: 100 mls/hr Insulin Detemir (Levemir) 10 unit SC HS [facility] Last Admin: 09/21/16 23:12 Dose: 10 unit Insulin Human Lispro (Humalog Low) 0 units SC Q6 [facility] PRN Reason: Protocol Last Admin: 09/22/16 12:48 Dose: Not Given Lactic Acid (Lac-Hydrin 12% Cream (140 G)) 0 ea TOP BID [facility] Levothyroxine Sodium (Synthroid) 200 mcg PEG ACB [facility] Last Admin: 09/22/16 10:29 Dose: 200 mcg Metoprolol Tartrate (Lopressor) 25 mg PEG Q8 [facility] Last Admin: 09/22/16 06:28 Dose: Not Given Mupirocin (Bactroban Ointment) 0 gm TOP BID [facility] Last Admin: 09/22/16 10:26 Dose: 1 applic Pantoprazole Sodium (Protonix Susp) 40 mg PEG DAILY [facility] Last Admin: 09/22/16 10:28 Dose: 40 mg Potassium Chloride (Potassium Chloride Oral Soln) 20 meq GT BID [facility] Last Admin: 09/22/16 10:28 Dose: 20 meq Results - Vital Signs Recent Vital Signs: Last Vital Signs Temp 98 F 09/22/16 08:57 Pulse 88 09/22/16 08:57 Resp 20 09/22/16 08:57 BP 130/76 09/22/16 08:57 Pulse Ox 98 09/21/16 16:00 - Labs Result Diagrams: 09/22/16 06:15 09/22/16 06:15 Labs: Laboratory Results - last 24 hr 09/21/16 09/21/16 09/21/16 08:00 08:00 09:00 WBC RBC Hgb Hct MCV MCH MCHC RDW Plt Count MPV Gran % Lymph % (Auto) [place] % (Auto) Eos % (Auto) Baso % (Auto) Gran # Lymph # [place] # Eos # Baso # Sodium Potassium Chloride Carbon Dioxide Anion Gap BUN Creatinine Est GFR ( Amer) Est GFR (Non-Af Amer) Random Glucose Hemoglobin A1c Calcium Phosphorus 4.5 Magnesium Iron 50 TIBC 219 L % Saturation 23 Ferritin 420.0 Total Bilirubin Direct Bilirubin AST ALT Alkaline Phosphatase Total Protein Albumin Globulin Albumin/Globulin Ratio 25-OH Vitamin D Total Procalcitonin 0.30 09/21/16 09/21/16 09/22/16 09:00 09:00 06:15 WBC 11.4 H RBC 3.33 L Hgb 10.1 L Hct 31.8 L MCV 95.5 MCH 30.3 MCHC 31.8 RDW 18.4 H Plt Count 232 MPV 11.9 H Gran % 75.2 H Lymph % (Auto) 14.6 L [place] % (Auto) 5.2 Eos % (Auto) 4.7 Baso % (Auto) 0.3 Gran # 8.58 H Lymph # 1.7 [place] # 0.6 Eos # 0.5 Baso # 0.03 Sodium Potassium Chloride Carbon Dioxide Anion Gap BUN Creatinine Est GFR ( Amer) Est GFR (Non-Af Amer) Random Glucose Hemoglobin A1c 7.0 H Calcium Phosphorus Magnesium Iron TIBC % Saturation Ferritin Total Bilirubin Direct Bilirubin AST ALT Alkaline Phosphatase Total Protein Albumin Globulin Albumin/Globulin Ratio 25-OH Vitamin D Total < 12.8 L Procalcitonin 05/26/17 05/26/17 06:15 10:30 WBC RBC Hgb Hct MCV MCH MCHC RDW Plt Count MPV Gran % Lymph % (Auto) [place] % (Auto) Eos % (Auto) Baso % (Auto) Gran # Lymph # [place] # Eos # Baso # Sodium 142 Potassium 3.4 L Chloride 105 Carbon Dioxide 23 Anion Gap 17 BUN 133 H* Creatinine 7.5 H Est GFR ( Amer) 6 Est GFR (Non-Af Amer) 5 Random Glucose 178 H Hemoglobin A1c Calcium 8.5 Phosphorus Magnesium Cancelled 1.9 Iron TIBC % Saturation Ferritin Total Bilirubin 0.4 Direct Bilirubin 0.4 AST 20 ALT 18 Alkaline Phosphatase 111 Total Protein 6.5 Albumin 3.1 Globulin 3.4 Albumin/Globulin Ratio 0.9 L 25-OH Vitamin D Total Procalcitonin Attending/Attestation - Attestation I have personally seen and examined this patient.: Yes I have fully participated in the care of the patient.: Yes I have reviewed all pertinent clinical information: Yes
--- NOTE | 2016-09-22 14:00 | PN ---
DATE: 09/22/2016 The patient is now awake, communicating quite clearly, describing discomfort in the skin surrounding the gastrostomy site. On examination, it is apparent that the phalange has slipped out and the gastr ostomy is leaking acid gastric content onto the skin and the phalange is now repositioned, the balloo n inflated with an additional 10 mL of saline and the wire wrap tightened around the phalange to prev ent dislodgement. The skin is now covered with mupirocin ointment and the wound care team will be coming later this aft ernoon to address further this cellulitis. The renal failure persists despite the fact that the patient has now made 300 mL of urine yesterday a nd 600 mL since then. The feeding can now be resumed at this point and the patient's prognosis remai ns guarded once more. This dictation will be electronically signed without being read. Rudi Torres MD cc: [phone] TT: 09/22/2016 13:59:35 Confirmation # [id number] Dictation # [id number] en
--- NOTE | 2016-09-22 14:32 | PN ---
DATE: 09/22/2016 SUBJECTIVE: The patient is seen lying in bed. She is awake, she is alert. She complains she is not feeling well. She is pointing to her abdomen, complaining of pain. She is also asking for water. PHYSICAL EXAMINATION: GENERAL: Elderly lady, lying in bed. VITAL SIGNS: Blood pressure 130/76, heart rate 88, respiratory rate 20, temperature 98. HEENT: Normocephalic, atraumatic. NECK: Positive pallor. NECK: Supple, no JVD, positive tracheostomy. LUNGS: Bilateral equal air entry, bilateral rhonchi. CARDIAC: S1, S2, regular rate and rhythm, no murmur, no rub. ABDOMEN: Obese, distended, positive PEG, dressing around the PEG, right-sided colostomy, bowel sound s present. EXTREMITIES: No lower extremity edema. INTAKE AND OUTPUT: 800/1125? ? LABORATORY DATA: WBC 11, hemoglobin 10, hematocrit 32, platelets 232. Sodium 142, potassium 3.4, ch loride 105, CO2 23, BUN 133, creatinine 7.5, glucose 178, calcium 8.5, magnesium 1.9, albumin 3.1, co rrected calcium is 9.2. Blood cultures, no growth so far. Renal ultrasound, right kidney 10.3, left kidney 12.2. CURRENT MEDICATIONS: Mucomyst, Aranesp, Bactroban, doxycycline 100 q. 12, DuoNeb, insulin detemir, L ipitor 20, Lopressor 25 q. 8, meropenem 500 q. 12, normal saline with 10 mEq of KCl at 100, potassium chloride 20 mEq via G-tube twice a day, Protonix, Synthroid. ASSESSMENT: 1. Acute kidney injury superimposed on chronic kidney disease stage IV. 2. Severe hypokalemia. 3. Largely prerenal azotemia. 4. Severe anemia. 5. Adequate iron stores. 6. Non-insulin dependent diabetes mellitus. 7. Hypertension. PLAN: 1. Continue IV fluids with potassium. 2. Continue potassium supplementation via G-tube. 3. Agree with KARAN for anemia of chronic kidney disease. 4. Continue fingerstick monitoring and insulin coverage. 5. No plans for renal replacement therapy. Lety Chavez MD cc: [phone] TT: 09/22/2016 14:31:26 Confirmation # [id number] Dictation # [id number] en
[2016-09-22 16:52] VITALS: RESP 22
--- NOTE | 2016-09-22 18:02 | CP.PCM.PN ---
Subjective - Date & Time of Evaluation Date of Evaluation: 09/22/16 Time of Evaluation: 09:50 - Subjective Subjective: Patient is comfortable, no fevers overnight. Objective - Vital Signs/Intake and Output Vital Signs (last 24 hours): Temp Pulse Resp BP Pulse Ox 98.6 F 96 H 22 144/88 100 09/22/16 16:30 09/22/16 16:30 09/22/16 16:30 09/22/16 16:30 09/22/16 16:30 Intake and Output: 09/22/16 09/22/16 06:59 18:59 Intake Total 800 Output Total 1125 Balance -325 - Medications Medications: Current Medications Acetylcysteine (Acetylcysteine 20%) 1 ml INH QIDRESP [facility] Last Admin: 09/22/16 16:12 Dose: Not Given Albuterol/Ipratropium (Duoneb 3 Mg/0.5 Mg (3 Ml) Ud) 3 ml IH QIDRESP [facility] Last Admin: 09/22/16 16:12 Dose: Not Given Atorvastatin Calcium (Lipitor) 20 mg JT DAILY [facility] Last Admin: 09/22/16 10:27 Dose: 20 mg Darbepoetin Pascual (Aranesp) 100 mcg SC MON [facility] Potassium Chloride 10 meq/ (Sodium Chloride) 1,005 mls @ 100 mls/hr IV .Q10H3M [facility] Stop: 09/24/16 17:44 Last Admin: 09/21/16 23:21 Dose: 100 mls/hr Meropenem 500 mg/ Sodium (Chloride) 100 mls @ 100 mls/hr IVPB Q12 [facility] PRN Reason: Protocol Stop: 09/28/16 10:01 Last Admin: 09/22/16 10:27 Dose: 100 mls/hr Doxycycline Hyclate 100 mg/ (Sodium Chloride) 100 mls @ 100 mls/hr IVPB Q12 [facility] PRN Reason: Protocol Last Admin: 09/22/16 10:29 Dose: 100 mls/hr Insulin Detemir (Levemir) 10 unit SC HS [facility] Last Admin: 09/21/16 23:12 Dose: 10 unit Insulin Human Lispro (Humalog Low) 0 units SC Q6 [facility] PRN Reason: Protocol Last Admin: 09/22/16 12:48 Dose: Not Given Lactic Acid (Lac-Hydrin 12% Cream (140 G)) 0 ea TOP BID [facility] Levothyroxine Sodium (Synthroid) 200 mcg PEG ACB [facility] Last Admin: 09/22/16 10:29 Dose: 200 mcg Metoprolol Tartrate (Lopressor) 25 mg PEG Q8 [facility] Last Admin: 09/22/16 14:46 Dose: Not Given Mupirocin (Bactroban Ointment) 0 gm TOP BID [facility] Last Admin: 09/22/16 10:26 Dose: 1 applic Pantoprazole Sodium (Protonix Susp) 40 mg PEG DAILY [facility] Last Admin: 09/22/16 10:28 Dose: 40 mg Potassium Chloride (Potassium Chloride Oral Soln) 20 meq GT BID [facility] Last Admin: 09/22/16 10:28 Dose: 20 meq - Labs Labs: 09/22/16 06:15 09/22/16 06:15 PT 10.7 Seconds (9.9-11.8) 09/20/16 12:45 INR 0.99 (0.93-1.08) 09/20/16 12:45 APTT 28.0 Seconds (23.7-30.8) 09/20/16 12:45 - Constitutional Appears: Non-toxic, No Acute Distress - Head Exam Head Exam: NORMAL INSPECTION - ENT Exam ENT Exam: Mucous Membranes Moist - Neck Exam Neck Exam: absent: Lymphadenopathy, Meningismus - Respiratory Exam Respiratory Exam: Decreased Breath Sounds - Cardiovascular Exam Cardiovascular Exam: +S1, +S2 - GI/Abdominal Exam GI & Abdominal Exam: Soft. absent: Tenderness Assessment and Plan - Assessment and Plan (Free Text) Plan: assessment Systemic Inflammatory Response Syndrome, R/O right lower lobe healthcare- associated pneumonia with possible gram positive cocci and/or gram negative bacilli acute on chronic renal failure S/P PEG tube placement diabetes mellitus anemia decubitus ulcers hypertension Plan PCT is normal and blood cx are negative - will d/c Doxycycline, Meropenem and monitor clinically; reviewed CT abdomen and pelvis which showed the right lower lobe opacity which may be atelectasis instead of pneumonia Will monitor clinically
[2016-09-22] MEDS: Ammonium Lactate 12% Cream (140 g) TOP SCH (18:17)
[2016-09-23] MEDS: Insulin Lispro (humaLOG) LOW Coverage SC SCH ×4 (00:34→18:51)
[2016-09-23 08:22] LABS: ADD MANUAL DIFF? NO
[2016-09-23 08:30] LABS: BASO # 0.02 K/mm3 (0.0-2.0); BASO % 0.2 % (0.0-3.0); EOS # 0.6 (0.0-0.7); EOS % 5.3 % (1.5-5.0); GRAN # 8.03 (1.4-6.5); GRAN % 74.7 % (50.0-68.0); HEMATOCRIT 32.5 % (36.0-48.0); LYMPH # 1.6 (1.2-3.4); LYMPH % 15.1 % (22.0-35.0); MEAN CELL VOLUME 96.7 fL (80.0-105.0); MEAN CORPUSCULAR HEMOGLOBIN 30.7 pg (25.0-35.0); MEAN CORPUSCULAR HGB CONC 31.7 g/dl (31.0-37.0); MONO # 0.5 (0.1-0.6); MONO % 4.7 % (1.0-6.0); PLATELET COUNT 244 10^3/uL (120.0-450.0); RED CELL DISTRIBUTION WIDTH 18.5 % (11.5-14.5); WHITE BLOOD COUNT 10.8 10^3/ul (4.5-11.0)
[2016-09-23 08:51] LABS: ALB/GLOB RATIO 0.9 (1.1-1.8); BILIRUBIN,DIRECT 0.4 mg/dL (0.0-0.4); BILIRUBIN,TOTAL 0.4 mg/dL (0.2-1.3); CALCIUM 8.7 mg/dL (8.4-10.5); MAGNESIUM 1.8 mg/dL (1.7-2.2); POTASSIUM 3.6 mmol/L (3.6-5.0); TOTAL PROTEIN 6.5 g/dL (5.8-8.3)
[2016-09-23] MEDS: Acetylcysteine 20% Inhal Soln (4ml) INH SCH ×3 (08:57→21:10)
[2016-09-23] MEDS: Albuterol-Ipratrop 3 mg / 0.5 (3 ml) UD IH SCH ×3 (08:58→21:10)
--- NOTE | 2016-09-23 09:12 | PN ---
DATE: 09/23/2016 SUBJECTIVE: The patient is currently seen on 5R. She is lying in bed. She appears to be in no acute distress. She is attempting to try and communicate with me. IV fluids are infusing. PEG tube feedings are on hold. MEDICATIONS: Medication list reviewed. The patient is currently on Levemir, Lipitor, Lopressor, IV fluids with potassium chloride at 100 mL an hour, Protonix, Synthroid. She had received doxycycline and meropenem for possible right lower lobe pneumonia. OBJECTIVE: INTAKE AND OUTPUT: Intake charted at 1200, but this likely at least 2400 with an output of 1685. VITAL SIGNS: Blood pressure 144/88, temperature 98.6, respiratory rate 22 with a pulse of 96. HEENT: Shows her to be normocephalic, atraumatic. Conjunctivae are pink. NECK: Supple, no neck vein distention. CHEST: Decreased breath sounds at the left base. Scattered rhonchi. CARDIOVASCULAR: S1, S2 normal, no murmurs, rubs, or gallops. ABDOMEN: Soft. Minimal distention. PEG tube in place. Area of excoriation around the PEG tube insertion site. Positive colostomy. Bowel sounds are normal. GENITOURINARY: Positive chronic indwelling Hahn catheter. EXTREMITIES: No lower extremity edema, cyanosis or clubbing. LABORATORY DATA AND IMAGING: Renal ultrasound and renal CT scan show no abnormalities. Labs: CBC: White blood cell count down to 11.4, hemoglobin 10.1 with a platelet count of 232,000. Chemistries from yesterday showed a potassium of 3.4, sodium 142, BUN 133 down from 155, baseline BUN is in the 50 - 60 range. Creatinine is down from 8.1 to 7.5, baseline creatinine is in the low to mid 3 range. Glucose 178. Calcium 8.5. Magnesium 1.9, phosphorus 4.5. Albumin was 3.1. Liver enzymes were normal. MICROBIOLOGY: All blood cultures are negative at 48 hours. ASSESSMENT: 1. Acute renal failure superimposed on chronic kidney disease stage IV. This is felt to be secondary to volume depletion and dehydration with possible superimposed right lower lobe pneumonia. 2. Hypokalemia. The patient will cautiously receive potassium supplements. This is all being given intravenously, as we are not using her PEG tube at this point in time. 3. Anemia. Likely secondary to acute renal failure and possible right lower lobe pneumonia. 4. Non-insulin dependent diabetes mellitus. The patient will continue sliding scale insulin. 5. History of neurogenic bladder with an indwelling Hahn catheter. 6. History of PEG tube and trach all stable with the exception of mild excoriation around the PEG tube exit site. 7. Colostomy stable. 8. History of hypertension. Blood pressure is controlled. 9. Hypothyroidism. The patient continues thyroid replacement therapy. PLAN: 1. Continue IV fluid hydration with potassium, keep intake greater than output. We need to monitor accurate I's and O's and this has been discussed with the staff on 5R. 2. When able patient may start nutrition through her G-tube. 3. Aranesp may be given for hemoglobin less than 10.1. Iron saturations were 23%. 4. As discussed by Dr. Chavez, patient is a DNR/DNI and there are no plans for renal replacement therapy. We are trying to correct her severe prerenal azotemia with IV fluid hydration. 5. Antibiotic therapy, perhaps discontinued as per infectious disease for her possible right lower lobe pneumonia. Ar Martinez MD cc: [phone] TT: 09/23/2016 09:11:36 Confirmation # [id number] Dictation # [id number]
[2016-09-23 10:43] LABS: URINE BILIRUBIN NEGATIVE (NEGATIVE); URINE BLOOD SMALL (NEGATIVE); URINE GLUCOSE (UA) NEGATIVE (NEGATIVE); URINE KETONE NEGATIVE (NEGATIVE); URINE LEUKOCYTE ESTERASE LARGE Leu/uL (NEGATIVE); URINE PROTEIN >=300 mg/dL (<30 mg/dL); URINE UROBILINOGEN 0.2 E.U./dL (<1 E.U./dL)
--- NOTE | 2016-09-23 10:45 | PN ---
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 The patient does not offer any other pedal complaints at this time. VITAL SIGNS: Reveal a temperature of 98.4, pulse rate of 95, blood pressure 167/53, respiratory rate of 22. LABORATORY DATA: Reveal a white count of 10.8, down from 11.4, hemoglobin of 10.3, hematocrit of 32. 5, platelet count of 244. OBJECTIVE: Palpable pedal pulses noted bilaterally. Temperature gradient is decreased bilaterally. The patient unable to detect 5.07 gram monofilament wire testing bilaterally, +2 pitting edema noted bilaterally. There is noted to be psoriatic patches of skin on the dorsal and plantar surfaces of b oth feet with the left being greater than the right. There is decreasing brown hyperpigmentation not ed diffusely to both feet. There are no open lesions noted. There are no interdigital macerations. There are no clinical signs of acute bacterial infection or cellulitis. ASSESSMENT: A 76-year-old female with past medical history of chronic obstructive pulmonary disease, longstanding uncontrolled insulin-dependent diabetes with neuropathy, hypertension, congestive heart failure, chronic kidney disease, with dystrophic changes to pedal skin bilaterally secondary to diab etic neuropathy. PLAN: The patient's feet were cleansed with normal sterile saline and an application of ammonium lac potter was applied to both feet. We will continue to do so daily. The patient will be seen and follow ed while in-house. Reinier Ace DPM cc: [id number] TT: 09/23/2016 10:45:00 Confirmation # [id number] Dictation # [id number] jose antonio
[2016-09-23 10:51] LABS: URINE APPEARANCE SL CLOUDY (CLEAR); URINE COLOR YELLOW (YELLOW)
[2016-09-23 10:53] LABS: URINE WBC TNTC /hpf (0-6)
[2016-09-23 10:54] LABS: URINE BACTERIA MANY (NEG)
[2016-09-23] MEDS: Levothyroxine 200 MCG TAB PEG SCH (12:09)
[2016-09-23] MEDS: Pantoprazole 40 mg Susp UD PEG SCH (12:09)
[2016-09-23] MEDS: Ammonium Lactate 12% Cream (140 g) TOP SCH ×2 (12:10→18:52)
[2016-09-23] MEDS: Potassium Chloride 20 mEq/15 ml LIQ UD GT SCH ×2 (12:11→18:52)
--- NOTE | 2016-09-23 16:18 | PN ---
DATE: 09/23/2016 The patient is in bed in no acute distress and nontoxic. No fevers and no chills. PHYSICAL EXAMINATION: VITAL SIGNS: Temperature is 98, blood pressure is 112/70 and respiratory rate of 16. HEENT: Unremarkable. NECK: Supple. LUNGS: Have decreased breath sounds. HEART: Normal S1, S2. ABDOMEN: Soft and nontender. Review of medications reveals the patient to be off of antibiotics. ASSESSMENT AND PLAN: This 76-year-old female with systemic inflammatory response syndrome and acute on chronic renal failure is status post percutaneous endoscopic gastrostomy tube placement, diabetes, hypertension, decubitus ulcer, anemia, negative blood cultures, currently now off of antibiotics wit h a procalcitonin of 0.3, less likely to be bacterial or pneumonia with a creatinine of 7.3. The pat ient is at risk for developing nosocomial infections. Chirag White MD cc: [id number] TT: 09/23/2016 16:17:27 Confirmation # [id number] Dictation # [id number]
[2016-09-23] MEDS: Nystatin 100,000 Units/gm Cream(15 gm) TOP SCH (18:52)
[2016-09-23] MEDS: Insulin Detemir 100 units/ml Vial (Levemir) SC SCH (22:53)
[2016-09-24 05:15] VITALS: BP 120/36; PULSE 98
[2016-09-24] MEDS: Insulin Lispro (humaLOG) LOW Coverage SC SCH ×2 (06:33)
[2016-09-24 07:24] VITALS: TEMP 97.9; O2SAT 98
[2016-09-24] MEDS: Acetylcysteine 20% Inhal Soln (4ml) INH SCH ×2 (07:47→12:37)
[2016-09-24] MEDS: Albuterol-Ipratrop 3 mg / 0.5 (3 ml) UD IH SCH ×2 (07:48→12:37)
[2016-09-24] MEDS: Levothyroxine 200 MCG TAB PEG SCH (08:20)
--- NOTE | 2016-09-24 10:12 | PN ---
DATE: 09/24/2016 SUBJECTIVE: The patient is currently seen on 5R. She is lying comfortable in bed. She is requestin g water. The patient remains on IV fluid hydration, plus PEG feedings have been started. MEDICATIONS: Medication list reviewed. The patient is on acetylcysteine, Aranesp, mupirocin, DuoNeb , insulin, Lac-Hydrin, Lipitor, Lopressor, Mycostatin, IV fluids with potassium, oral potassium suppl ements, Protonix, and Synthroid. OBJECTIVE: INTAKE AND OUTPUT: Intake 3660, output 1200. VITAL SIGNS: Blood pressure 120/36, temperature 97.9, respiratory rate 22 with a pulse of 98. HEENT: Shows her to be normocephalic, atraumatic. Conjunctivae are pink. Sclerae are nonicteric. NECK: Supple. No neck vein distention. CHEST: Decreased breath sounds at the right base. Scattered rhonchi. CARDIOVASCULAR: S1, S2 normal. No murmurs, rubs, or gallops noted. ABDOMEN: Soft. Minimal distention. PEG tube in place. Colostomy site intact. Bowel sounds normal . GENITOURINARY: Positive indwelling Hahn catheter. EXTREMITIES: No lower extremity cyanosis, clubbing, or edema. LABORATORY DATA AND IMAGING: Renal ultrasound and renal CT scan showed no abnormalities. Labs: CBC: White blood cell count 10.8, hemoglobin 10.2 with a platelet count of 244,000. Chemistr ies show sodium 145, potassium 3.6, chloride 110 with a CO2 of 20. BUN is 120 with a creatinine of 7 .3. Glucose 140. Calcium 8.7. Phosphorus level is pending. Magnesium level 1.8. Liver enzymes ar e normal. Albumin is 3.1. Vitamin D level is low at less than 12.8. Thyroid levels are normal. Microbiology: Cultures are negative at 72 hours. ASSESSMENT: 1. Acute renal failure superimposed on chronic kidney disease, stage IV. Her baseline BUN is in the 50-60 range with a baseline creatinine in the mid-3 range. Presently, her BUN is 120 with a creatin ine of 7.3. This is down from a BUN of 155 and a creatinine of 8.1. There are no plans for dialysis . The patient is a DO NOT RESUSCITATE/DO NOT INTUBATE. We are attempting to correct her electrolyte abnormalities with IV fluid hydration and keeping the patient in positive fluid balance. 2. Hypokalemia. The patient is receiving potassium supplements via IV and via the percutaneous endo scopic gastrostomy tube. 3. Anemia secondary to acute renal failure with a possible right lower lobe pneumonia. 4. Non-insulin dependent diabetes mellitus. The patient will continue sliding scale insulin. 5. History of neurogenic bladder with indwelling Hahn catheter. Urine studies done yesterday showe d too numerous to count white blood cells and red blood cells. Urine culture and sensitivity is pend ing. 6. History of percutaneous endoscopic gastrostomy tube and trach - all stable. The patient had mild excoriation around the percutaneous endoscopic gastrostomy tube site, but it is functional and is be ing used. 7. Stable colostomy. 8. History of hypertension. Blood pressure controlled. 9. Hypothyroidism. The patient will continue thyroid replacement therapy. 10. Vitamin D deficiency. The patient will be started on vitamin D supplements. PLAN: 1. Continue IV fluid hydration. 2. Continue hydration and nutrition via the PEG tube. 3. Continue Aranesp for her anemia in part secondary to acute renal failure superimposed on chronic kidney disease. 4. No plans for renal replacement therapy, as per Dr. Chavez's note from several days ago. We are tr daly to correct her severe prerenal azotemia with IV fluid hydration and now oral fluid hydration wit h PEG tube feedings and free water. 5. Check urine culture and p.r.n. adjust antibiotics. The patient has completed a course of meropen em and doxycycline for what was thought to possibly be a right lower lobe infiltrate, questionable pn eumonia. Ar Martinez MD cc: [id number] TT: 09/24/2016 10:11:51 Confirmation # [id number] Dictation # [id number] jn
[2016-09-24] MEDS: Nystatin 100,000 Units/gm Cream(15 gm) TOP SCH (11:31)
[2016-09-24] MEDS: Ammonium Lactate 12% Cream (140 g) TOP SCH (11:31)
[2016-09-24] MEDS: Potassium Chloride 20 mEq/15 ml LIQ UD GT SCH (11:31)
[2016-09-24] MEDS: Pantoprazole 40 mg Susp UD PEG SCH (11:32)
--- NOTE | 2016-09-24 11:53 | PN ---
DATE: 09/24/2016 The patient is in bed, in no acute distress. PHYSICAL EXAMINATION: VITAL SIGNS: Temperature is 98, blood pressure is 120/60, respiratory rate 22, heart rate of 93. HEENT: Unremarkable. NECK: Supple. LUNGS: Have decreased breath sounds. HEART: Normal S1, S2. ABDOMEN: Soft, nontender. LABORATORY EXAMINATION: Reveals a white count of 10,000, hemoglobin of 10, platelets of 244. BUN of 120, creatinine is 7.3 and procalcitonin 0.3. Urinalysis is noted. Microbiology reveals the blood cultures are no growth. Review of orders reveals the patient is off of antibiotics. ASSESSMENT AND PLAN: A 76-year-old female with systemic inflammatory response syndrome, acute on chr onic renal failure, status post gastrostomy tube placement, diabetes and hypertension, decubitus ulce r, anemia, negative cultures. Off of antibiotics. Normal procalcitonin, and at risk for developing nosocomial infections. Chirag White MD cc: 350 TT: 09/24/2016 11:52:47 Confirmation # [id number] Dictation # [id number] en
[2016-09-25] MEDS ORDERED: Darbepoetin Alfa 100 mcg/ml Inj SC SCH (10:00)
[2016-09-25] MEDS ORDERED: EPOETIN ALFA 40000 UNIT SC SCH (10:00)
--- NOTE | 2016-09-25 18:47 | DS ---
The patient was seen in room 569, bed 1. The patient is discharged back to [facility], after the patient's family and next of kin declined dialysis, declined aggressive therapy and requested to continue with the DNR/DNI. The patient's overnight nurse's notes were reviewed. The patient laid in the bed. The patient slept overnight. PHYSICAL EXAMINATION: VITAL SIGNS: T-max is 98.4. Heart rate 98-93. Blood pressure 120/36, 163/58, 123/97. Respirations 22. O2 sat 98%. Urine output was very negligible to ____ _ 250 mL. HEAD: Normocephalic, atraumatic. HEENT: Shows pinkish, pale conjunctivae. NECK: Positive tracheostomy. CHEST: Kyphosis. LUNGS: Shows occasional rhonchi upper lung dunaway. CARDIOVASCULAR: S1, S2, regular rhythm. ABDOMEN: Shows multiple surgical scars. Positive gastrostomy. Positive colostomy. GENITALIA: Female. Positive Hahn catheter. EXTREMITIES: Shows no pitting edema, no calf tenderness, no Homans signs. MUSCULOSKELETAL: Shows a body mass index of 28. NEUROLOGIC: Cranial nerves II-XII limited. Neuro examination is limited. GAIT: Could not be tested as the patient is lying in the bed. DIAGNOSTICS: None from today. Blood and urine cultures are negative. FINAL IMPRESSION, PLAN, AND DISCHARGE DIAGNOSES: 1. Systemic inflammatory response syndrome. 2. Acute renal failure with underlying chronic kidney disease stage II/III. 3. Decubitus ulceration. 4. Hypertension. 5. Low-grade fever. 6. Tachycardia. 7. Status post tracheostomy, colostomy, jejunostomy. 8. Leukocytosis with granulocytosis. 9. Normocytic anemia. 10. Status post packed red blood transfusion. 11. Hypokalemia. 12. Insulin-requiring diabetes mellitus with hemoglobin A1c of 7.0. 13. Hyperuricemia. 14. Hyperuricemia. 15. Hyperuricemia. 16. Hypovitaminosis D. 17. Hypertriglyceridemia with decreased HDL. 18. Iron deficiency, chronic normocytic anemia. 19. Proteinuria, microscopic hematuria, pyuria, bacteriuria and funguria. 20. Questionable right lower lobe pneumonia, atelectasis. 21. Right lower lobe atelectasis, pneumonia. 22. Cholecystectomy with mildly dilated common bile duct. 23. Status post gastrostomy and colostomy. 24. Status post transverse and descending colon resection. 25. Right bundle branch block with age indeterminate inferior infarct. 26. Hypokalemia. 27. Neurogenic bladder. 28. Hypovitaminosis D. 29. Hypothyroidism. 1. Acute renal failure with severe prerenal kidney injury. 2. Feeding dysfunction and gastrostomy tube malfunction. 3. Systemic inflammatory response syndrome with possible sepsis with acute renal failure with underlying chronic kidney disease. 4. Right lower lobe healthcare-associated pneumonia, atelectasis and infiltrate. 5. Decubitus ulceration. 6. Severe gait dysfunction and bedridden status and functional quadriplegia. 7. Gastrostomy tube site cellulitis. 8. Underlying chronic kidney disease stage III/IV. 9. Severe hypokalemia. 10. Anion gap metabolic acidosis. 11. Protein malnutrition and hypoalbuminemia. 12. Anemia. 13. Iron deficiency anemia. 14. Low-grade fever. 15. History of hypertension. 16. Tracheostomy, gastrostomy, colostomy. 17. Leukocytosis with granulocytosis. 18. Normocytic anemia. 19. Status post packed red blood cell transfusion. 20. Hypokalemia. 21. Hyperuricemia. 22. Type 1 insulin-requiring diabetes mellitus with hemoglobin A1c of 7.0. 23. Hyperuricemia. 24. Hypertriglyceridemia with decreased HDL. 25. Hypovitaminosis D. 26. Status post packed red blood cell transfusion x 1. 27. Right lower lobe atelectasis, pneumonia and left lung base opacity. 28. Mildly dilated common bile duct secondary to cholecystectomy. 29. Diffuse atherosclerotic calcification. 30. Status post gastrostomy and colostomy. 31. Status post transverse and descending colon resection. 32. Neurogenic bladder. 33. Sacral decubitus ulceration. 34. Right bundle branch block, age-indeterminate inferior infarct. 35. Hypokalemia. 36. History of ventilator-dependent respiratory failure. 37. History of tracheostomy. 38. History of chronic obstructive pulmonary disease. 39. History of hypothyroidism. 40. History of type 1 diabetes mellitus. 41. History of dyslipidemia. 42. History of multiple abdominal surgeries. 43. History of gastrostomy, jejunostomy, colostomy. 44. History of neurogenic bladder. 45. History of functional quadriplegia. 1. Acute renal failure. 2. Low-grade fever. 3. History of hypertension. 4. Questionable systemic inflammatory response syndrome versus questionable sepsis. 5. Leukocytosis with granulocytosis. 6. Normocytic anemia with decreasing hemoglobin and hematocrit. 7. Hypokalemia. 8. Acute renal failure. 9. Anuric renal failure. 10. Insulin requiring diabetes mellitus. 11. Hyperuricemia. 12. Hypoalbuminemia. 13. History of respiratory failure and tracheostomy placement. 14. Hypertriglyceridemia, but decreased HDL. 15. History of hypothyroidism. 16. Right bundle branch block. 17. Right lower lobe atelectasis versus pneumonia and opacity. 18. Mildly dilated common bile duct with possible prior cholecystectomy. 19. Status post gastrostomy and colostomy. 20. Anuric renal failure. 21. Severe gait dysfunction and deconditioning with bedridden status and functional quadriplegia. 22. Right bundle branch block with age-indeterminate inferior infarct. 23. Leukocytosis with granulocytosis. 24. History of dyslipidemia, history of diabetic gastroparesis, history of hypothyroidism, history of insulin-requiring diabetes mellitus, history of chronic iron deficiency normocytic anemia. 25. History of tracheostomy. 26. History of decubitus ulceration. 1. Acute renal failure with worsening BUN, creatinine with creatinine going up to greater than 8. 2. Probable prerenal kidney injury and acute renal failure. 3. Leukocytosis with granulocytosis. 4. Chronic normocytic iron deficiency anemia. 5. Hemoconcentration and severe dehydration and hypovolemia. 6. Right bundle branch block. 7. Questionable recurrent chronic urinary tract infection versus colonization. 8. Acute renal failure. 9. Right bundle branch block. 10. History of ventilator-dependent respiratory failure, history of tracheostomy, history of chronic obstructive pulmonary disease exacerbation, history of right bundle branch block, history of hypothyroidism, history of type 1 insulin-requiring diabetes mellitus, history of dyslipidemia, history of multiple abdominal surgeries, history of gastrostomy jejunostomy, history of colostomy, history of neurogenic bladder, history of severe gait dysfunction, bedridden status and functional quadriplegia. PLAN: At this time, the patient is to be continued on all the above therapeutic interventions as per the MAR. The patient will be discharged back to [facility]. DISCHARGE MEDICATIONS: 1. Tylenol 650 q. 6 p.r.n. via the PEG. 2. Mucomyst nebulizer treatment with DuoNeb nebulizer treatment every 6 hours. 3. Zyloprim 100 mg daily. 4. 30 mL daily. 5. Lotrisone cream to the legs. 6. Procrit or Aranesp weekly. 7. Heparin 5000 subQ q. 12. 8. Lantus 10 units at bedtime. 9. Humalog low dose sliding scale coverage. 10. Synthroid 200 mcg daily. 11. Reglan 10 mg via the PEG tube q. 6 p.r.n. 12. Lopressor 25 mg q. 8. 13. Protonix suspension 40 mg via the PEG daily. 14. Crestor 5 mg daily. 15. The patient is to be continued on IV fluid. Continue 0.9 normal saline at 100 mL an hour. Dictated, electronically signed, not read. Dom Aceves MD cc: [id number] TT: 09/25/2016 18:46:49 holly LU
--- NOTE | 2016-09-26 08:23 | PN ---
DATE: 09/23/2016 The patient is seen lying in the bed in room 569, bed 1. The patient is requesting ice chips or water to drink. The patient does not appear to be in any distress. PHYSICAL EXAMINATION: VITAL SIGNS: T-max 98.4, heart rate 93, 107, 95 and 96; blood pressure 163/58, 123/97 and 167/53; respirations 20, O2 sat 97% on trach collar. The patient is still not making urine. HEAD: Normocephalic, atraumatic. HEENT: Shows pinkish, pale conjunctivae, anicteric sclerae. NECK: Positive tracheostomy noted. CARDIOVASCULAR: Shows S1, S2, regular rhythm. LUNGS: Questionable rhonchi upper lung dunaway anteriorly. ABDOMEN: Is diffusely tender, positive voluntary guarding, positive colostomy, positive gastrostomy. GENITALIA: Female. Positive Hahn catheter. EXTREMITIES: Shows no pitting edema, no calf tenderness, no Homans sign. MUSCULOSKELETAL: Shows a body mass index of 28. NEUROLOGIC: Cranial nerves II-XII limited. GAIT: Bedridden. VASCULAR: Palpable pulses. PSYCHIATRIC: Not applicable. DIAGNOSTICS: On 09/23: WBC 10.8, hemoglobin and hematocrit 10.3 and 32.5, and platelets 244. Granulocytes 75%. Sodium 145, potassium 3.6, chloride 110, CO2 of 20, anion gap 19, BUN 120, creatinine 7.3, GFR 7, glucose 140. Hemoglobin A1c 7.3. Lactic acid is 1.3, hemoglobin A1c of 7.0. Uric acid was 9.9. Calcium 8.7, phosphorus was 4.5, magnesium 1.9. LFTs are normal. Blood cultures no growth. The patient was seen by Dr. Martinez this morning. The patient was seen by podiatry. The patient was seen by infectious disease. All antibiotics stopped. IMPRESSION AND PLAN: 1. Acute renal failure with severe prerenal kidney injury. 2. Feeding dysfunction with gastrostomy tube placement and gastrostomy tube malfunction. 3. Systemic inflammatory response syndrome with acute renal failure and underlying chronic kidney disease. 4. Questionable possible right lower lobe healthcare-associated pneumonia, atelectasis infiltration. 5. Decubitus ulceration. 6. History of hypertension. 7. Tachycardia. 8. Systemic inflammatory response syndrome. 10. Tachycardia 11. History of hypertension. 12. Functional quadriplegia with chronic bedridden status and severe gait dysfunction and deconditioning. 13. Leukocytosis with granulocytosis. 14. Normocytic anemia. 15. Status post packed red blood cell transfusion. 16. Hypokalemia. 17. Acute renal failure. 18. Type 1 insulin-requiring diabetes mellitus with hemoglobin A1c of 7.0. 19. Hypokalemia. 20. Hyperuricemia. 21. Iron deficiency. 22. History of hypothyroidism. 23. Hypertriglyceridemia with decreased HDL. 24. Hypovitaminosis D. 25. Proteinuria, microscopic hematuria, pyuria, funguria, bacteriuria, questionable urinary tract infection. 26. Sacral decubitus ulceration. 27. Gastrostomy tube malfunction. 28. Neurogenic bladder with indwelling Hahn catheter. 1. Systemic inflammatory response syndrome. 2. Acute renal failure with underlying chronic kidney disease stage II/III. 3. Decubitus ulceration. 4. Hypertension. 5. Low-grade fever. 6. Tachycardia. 7. Status post tracheostomy, colostomy, jejunostomy. 8. Leukocytosis with granulocytosis. 9. Normocytic anemia. 10. Status post packed red blood transfusion. 11. Hypokalemia. 12. Insulin-requiring diabetes mellitus with hemoglobin A1c of 7.0. 13. Hyperuricemia. 14. Hyperuricemia. 15. Hyperuricemia. 16. Hypovitaminosis D. 17. Hypertriglyceridemia with decreased HDL. 18. Iron deficiency, chronic normocytic anemia. 19. Proteinuria, microscopic hematuria, pyuria, bacteriuria and funguria. 20. Questionable right lower lobe pneumonia, atelectasis. 21. Right lower lobe atelectasis, pneumonia. 22. Cholecystectomy with mildly dilated common bile duct. 23. Status post gastrostomy and colostomy. 24. Status post transverse and descending colon resection. 25. Right bundle branch block with age indeterminate inferior infarct. 26. Hypokalemia. 27. Neurogenic bladder. 28. Hypovitaminosis D. 29. Hypothyroidism. 1. Acute renal failure with severe prerenal kidney injury. 2. Feeding dysfunction and gastrostomy tube malfunction. 3. Systemic inflammatory response syndrome with possible sepsis with acute renal failure with underlying chronic kidney disease. 4. Right lower lobe healthcare-associated pneumonia, atelectasis and infiltrate. 5. Decubitus ulceration. 6. Severe gait dysfunction and bedridden status and functional quadriplegia. 7. Gastrostomy tube site cellulitis. 8. Underlying chronic kidney disease stage III/IV. 9. Severe hypokalemia. 10. Anion gap metabolic acidosis. 11. Protein malnutrition and hypoalbuminemia. 12. Anemia. 13. Iron deficiency anemia. 14. Low-grade fever. 15. History of hypertension. 16. Tracheostomy, gastrostomy, colostomy. 17. Leukocytosis with granulocytosis. 18. Normocytic anemia. 19. Status post packed red blood cell transfusion. 20. Hypokalemia. 21. Hyperuricemia. 22. Type 1 insulin-requiring diabetes mellitus with hemoglobin A1c of 7.0. 23. Hyperuricemia. 24. Hypertriglyceridemia with decreased HDL. 25. Hypovitaminosis D. 26. Status post packed red blood cell transfusion x 1. 27. Right lower lobe atelectasis, pneumonia and left lung base opacity. 28. Mildly dilated common bile duct secondary to cholecystectomy. 29. Diffuse atherosclerotic calcification. 30. Status post gastrostomy and colostomy. 31. Status post transverse and descending colon resection. 32. Neurogenic bladder. 33. Sacral decubitus ulceration. 34. Right bundle branch block, age-indeterminate inferior infarct. 35. Hypokalemia. 36. History of ventilator-dependent respiratory failure. 37. History of tracheostomy. 38. History of chronic obstructive pulmonary disease. 39. History of hypothyroidism. 40. History of type 1 diabetes mellitus. 41. History of dyslipidemia. 42. History of multiple abdominal surgeries. 43. History of gastrostomy, jejunostomy, colostomy. 44. History of neurogenic bladder. 45. History of functional quadriplegia. 1. Acute renal failure. 2. Low-grade fever. 3. History of hypertension. 4. Questionable systemic inflammatory response syndrome versus questionable sepsis. 5. Leukocytosis with granulocytosis. 6. Normocytic anemia with decreasing hemoglobin and hematocrit. 7. Hypokalemia. 8. Acute renal failure. 9. Anuric renal failure. 10. Insulin requiring diabetes mellitus. 11. Hyperuricemia. 12. Hypoalbuminemia. 13. History of respiratory failure and tracheostomy placement. 14. Hypertriglyceridemia, but decreased HDL. 15. History of hypothyroidism. 16. Right bundle branch block. 17. Right lower lobe atelectasis versus pneumonia and opacity. 18. Mildly dilated common bile duct with possible prior cholecystectomy. 19. Status post gastrostomy and colostomy. 20. Anuric renal failure. 21. Severe gait dysfunction and deconditioning with bedridden status and functional quadriplegia. 22. Right bundle branch block with age-indeterminate inferior infarct. 23. Leukocytosis with granulocytosis. 24. History of dyslipidemia, history of diabetic gastroparesis, history of hypothyroidism, history of insulin-requiring diabetes mellitus, history of chronic iron deficiency normocytic anemia. 25. History of tracheostomy. 26. History of decubitus ulceration. 1. Acute renal failure with worsening BUN, creatinine with creatinine going up to greater than 8. 2. Probable prerenal kidney injury and acute renal failure. 3. Leukocytosis with granulocytosis. 4. Chronic normocytic iron deficiency anemia. 5. Hemoconcentration and severe dehydration and hypovolemia. 6. Right bundle branch block. 7. Questionable recurrent chronic urinary tract infection versus colonization. 8. Acute renal failure. 9. Right bundle branch block. 10. History of ventilator-dependent respiratory failure, history of tracheostomy, history of chronic obstructive pulmonary disease exacerbation, history of right bundle branch block, history of hypothyroidism, history of type 1 insulin-requiring diabetes mellitus, history of dyslipidemia, history of multiple abdominal surgeries, history of gastrostomy jejunostomy, history of colostomy, history of neurogenic bladder, history of severe gait dysfunction, bedridden status and functional quadriplegia. PLAN: At this time, the patient has been setup for discharge to [facility]. As the patient's all IV antibiotics are stopped, the patient's family and the next of kin, Pavithra Cheek, has requested to continue with the patient's DNR/DNI and no aggressive measures have been requested by the patient's next of kin and they have also declined dialysis. At present, the patient will be discharged to [facility] in the a.m. CURRENT MEDICATIONS: 1. Mucomyst 20% nebulizer treatment 4 times a day, Aranesp 100 mcg subQ Sunday , Bactroban cream to the gastrostomy tube site 3 times a day, DuoNeb nebulizer 4 times a day, Humalog low dose sliding scale coverage q.6, Lac-Hydrin lotion to both feet and legs twice a day, Levemir 10 units at bedtime, Lipitor 20 mg daily, Lopressor 25 mg q.8. Mycostatin to affected area 3 times a day. The patient is started on potassium 20 mEq via the G-tube twice a day, Protonix 40 mg p.o. daily. The patient's potassium today is 3.6. The patient is on Protonix 40 mg via PEG. The patient is on 0.9 normal saline at 100 mL an hour, which will be continued at the half-way. The patient is on Synthroid 200 mcg via the PEG daily. The patient is on tube feeding Jevity at 40 mL an hour. At present, the patient's overall prognosis is guarded to extremely poor. The family aware, the family has declined dialysis and further aggressive treatment has been declined by the patient's family, so the patient will be sent back to [facility] in the a.m. Dictated and electronically signed, not read. Dom Aceves MD cc: [id number] TT: 09/23/2016 17:26:38 Confirmation # [id number] Dictation # [id number] j LU
== END 2016-09-24 15:18 | DRG 682 ==
LOC: ED 11:51 → ERH 13:35 → 5RNO 17:57
PROVIDERS: ADMIT Internal Medicine; ATTEND Internal Medicine
PROC: 30233N1 Transfusion of Nonautologous Red Blood Cells into Peripheral Vein, Percutaneous Approach (ICD-10-PCS; principal; 2016-09-21)
DX: N17.9 Acute kidney failure, unspecified (principal); J18.9 Pneumonia, unspecified organism; R65.11 Systemic inflammatory response syndrome (SIRS) of non-infectious origin with acute organ dysfunction; E87.3 Alkalosis; E46 Unspecified protein-calorie malnutrition; I13.0 Hypertensive heart and chronic kidney disease with heart failure and stage 1 through stage 4 chronic kidney disease, or unspecified chronic kidney disease; R53.2 Functional quadriplegia; J44.0 Chronic obstructive pulmonary disease with (acute) lower respiratory infection; K94.22 Gastrostomy infection; L03.311 Cellulitis of abdominal wall; K94.23 Gastrostomy malfunction; I50.9 Heart failure, unspecified; J98.11 Atelectasis; L89.152 Pressure ulcer of sacral region, stage 2; E11.40 Type 2 diabetes mellitus with diabetic neuropathy, unspecified; K31.84 Gastroparesis; E11.22 Type 2 diabetes mellitus with diabetic chronic kidney disease; E11.43 Type 2 diabetes mellitus with diabetic autonomic (poly)neuropathy; E86.0 Dehydration; I45.10 Unspecified right bundle-branch block; E87.6 Hypokalemia; N18.4 Chronic kidney disease, stage 4 (severe); D50.9 Iron deficiency anemia, unspecified; Z74.01 Bed confinement status; E55.9 Vitamin D deficiency, unspecified; E78.1 Pure hyperglyceridemia; N31.9 Neuromuscular dysfunction of bladder, unspecified; E03.9 Hypothyroidism, unspecified; Z66 Do not resuscitate; M10.9 Gout, unspecified; K21.9 Gastro-esophageal reflux disease without esophagitis; K83.8 Other specified diseases of biliary tract; Y83.3 Surgical operation with formation of external stoma as the cause of abnormal reaction of the patient, or of later complication, without mention of misadventure at the time of the procedure; D63.1 Anemia in chronic kidney disease; E11.65 Type 2 diabetes mellitus with hyperglycemia; E78.5 Hyperlipidemia, unspecified; Z79.4 Long term (current) use of insulin; Z68.28 Body mass index [BMI] 28.0-28.9, adult; Z93.0 Tracheostomy status; Z87.891 Personal history of nicotine dependence

== ENCOUNTER 2016-10-09 10:52 | Inpatient (IN) | payer MEDICARE, MEDICAID ==
[2016-10-09] MEDS ORDERED: Vancomycin 1gm in NS 250ml 250 ML IVPB STA (11:22)
--- NOTE | 2016-10-09 11:23 | ED PDOC ---
Arrival/HPI - General Chief Complaint: Abnormal Labs Time Seen by Provider: 10/09/16 11:06 Historian: Detention EM Caveat: Acuity of Condition - History of Present Illness Narrative History of Present Illness (Text): 10/09/16 11:09 A 76 year old female, whose past medical history includes COPD, Anemia, CHF, hypertension, diabetes and Gout, is sent to the emergency department from [facility] for bilateral upper extremity edema, lethargy, decreased responsiveness, decreased urine output and inability to obtain blood pressure. The patient lab work work from 10/02/16 shows a creatinine level of 4.36. Patient has a POLST. HPI and ROS limited due to acuity of patient's condition. PMD: Dr. Aceves Past Medical History - Provider Review Nursing Documentation Reviewed: Yes - Past History Past History: Non-Contributing - Infectious Disease Hx of Infectious Diseases: None - Tetanus Immunization Tetanus Immunization: Unknown - Cardiac Hx Cardiac Disorders: Yes Hx Congestive Heart Failure: Yes Hx Hypertension: Yes Hx Peripheral Vascular Disease: Yes - Pulmonary Hx Respiratory Disorders: Yes Hx Asthma: Yes Hx Bronchitis: Yes Hx Chronic Obstructive Pulmonary Disease (COPD): Yes Hx Emphysema: Yes Hx Pneumonia: Yes Hx Respiratory Tract Infection: Yes Other/Comment: pt has trach - Neurological Hx Neurological Disorder: Yes HX Cerebrovascular Accident: Yes Other/Comment: gout - HEENT Hx HEENT Disorder: Yes Hx Glaucoma: Yes - Renal Hx Renal Disorder: No Hx Dialysis: No Hx Kidney Stones: No Hx Neurogenic Bladder: No Hx Pyelonephritis: No Hx Renal Cancer: No Hx Renal Failure: No Other/Comment: acute renal failure - Endocrine/Metabolic Hx Endocrine Disorders: Yes Hx Diabetes Mellitus Type 2: Yes - Hematological/Oncological Hx Blood Disorders: Yes Hx Anemia: Yes - Integumentary Hx Dermatological Disorder: No Hx Basal Cell Carcinoma: No Hx Eczema: No Hx Melanoma: No Hx Psoriasis: No Hx Squamous Cell Carcinoma: No - Musculoskeletal/Rheumatological Hx Musculoskeletal Disorders: Yes Hx Falls: No Hx Gout: Yes Hx Spinal Stenosis: Yes - Gastrointestinal Hx Gastrointestinal Disorders: Yes Hx Colostomy: Yes Hx Gastroesophageal Reflux: Yes HX Swallowing Problems: Yes Other/Comment: hx tube feeding;g-tube - Genitourinary/Gynecological Hx Genitourinary Disorders: Yes Hx Urinary Tract Infection: Yes Other/Comment: 2w higgins - Psychiatric Hx Psychophysiologic Disorder: Yes Hx Depression: Yes Hx Substance Use: No - Past Surgical History Past Surgical History: Unable to Obtain - Surgical History Hx Amputation: No Hx Appendectomy: No Hx Cardiac Catheterization: No Hx Cholecystectomy: No Hx Coronary Stent: No Hx Gastric Bypass Surgery: No Hx Hysterectomy: No Hx Joint Replacement: No Hx Kidney Transplant: No Hx Liver Transplant: No Hx Mastectomy: No Hx Musculoskeletal Surgery: No Hx Open Heart Surgery: No Hx Orthopedic Surgery: No Hx Splenectomy: No Hx Valve Replacement: No - Anesthesia Hx Anesthesia: No Hx Anesthesia Reactions: No Hx Malignant Hyperthermia: No - Suicidal Assessment Feels Threatened In Home Enviroment: No Family/Social History - Physician Review Nursing Documentation Reviewed: Yes Family/Social History: Unknown Family HX Smoking Status: Former Smoker Hx Alcohol Use: No Hx Substance Use: No Hx Substance Use Treatment: No Allergies/Home Meds Allergies/Adverse Reactions: Allergies No Known Allergies Allergy (Verified 10/09/16 15:32) as per [facility] home chart Home Medications: Home Meds Medication Instructions Recorded Confirmed Insulin Glargine, Recombina 10 unit SC HS 07/29/15 10/09/16 [Lantus] Allopurinol [Zyloprim] 100 mg JT DAILY 07/02/16 10/09/16 Heparin [Heparin (RENAL)] 5,000 units SC Q8 07/02/16 10/09/16 Acetaminophen [Tylenol 650 mg Supp] 650 mg PEG Q6H PRN 08/03/16 10/09/16 Acetylcysteine 20% [Acetylcysteine 1 inh INH QID 08/03/16 10/09/16 20%] Amino Acids/Protein Hydrolys 30 ml JT DAILY 08/03/16 10/09/16 [Prosource No Carb Liquid Pkt] Clotrimazole/Betamethasone 0 gm TOP BID 08/03/16 10/09/16 [Lotrisone] Insulin Lispro-LOW [humALOG LOW] 0 units SC DAILY 08/03/16 10/09/16 Levothyroxine [Synthroid] 200 mcg PEG DAILY 08/03/16 10/09/16 Amino Acids/Protein Hydrolys 30 ml PEG DAILY 10/09/16 10/09/16 [Prosource No Carb Liquid Pkt] Ammonium Lactate 12% [Lac-Hydrin 1 appful TOP BID 10/09/16 10/09/16 12% Cream (140 g)] Atorvastatin [Lipitor] 20 mg PEG HS 10/09/16 10/09/16 Cholecalciferol [Vitamin D 1000 IU] 2,000 units PEG DAILY 10/09/16 10/09/16 Clotrimazole/Betamethasone 1 appful TOP BID 10/09/16 10/09/16 [Lotrisone] Darbepoetin Pascual [Aranesp] 1 ml SC .EVERY Sunday10/09/16 10/09/16 Levalbuterol [Xopenex] 1 inh INH QID 10/09/16 10/09/16 Mupirocin 2% Ointment [Bactroban 1 appful TOP BID 10/09/16 10/09/16 Ointment] Silver Sulfadiazine 1% [Silvadene 1 appful TOP BID 10/09/16 10/09/16 1%] Review of Systems - Review of Systems Systems not reviewed;Unavailable: Acuity of Condition Physical Exam Vital Signs Reviewed: Yes Vital Signs Temp Pulse Resp BP Pulse Ox 10/09/16 16:13 58 L 20 98/45 L 95 10/09/16 14:07 56 L 20 96/32 L 94 L 10/09/16 12:16 67 20 86/42 L 96 10/09/16 11:35 82/31 L 10/09/16 11:15 98.3 F 71 22 96 Temperature: Afebrile Pulse: Regular Respiratory Rate: Normal Appearance: Positive for: Non-Toxic Pain Distress: None Mental Status: Positive for: Lethargic. No: Confused, Agitated, Comatose - Systems Exam Head: Present: Atraumatic, Normocephalic Conjunctiva: Present: Normal Mouth: Present: Moist Mucous Membranes Neck: Present: Normal Range of Motion, Other (trachea tube in place) Respiratory/Chest: Present: Clear to Auscultation, Good Air Exchange. No: Respiratory Distress, Accessory Muscle Use Cardiovascular: Present: Regular Rate and Rhythm, Normal S1, S2. No: Murmurs Abdomen: Present: Normal Bowel Sounds, Feeding Tubes (in place), Ostomy Tubes ( in place). No: Tenderness, Distention, Peritoneal Signs, Rebound, Guarding Upper Extremity: Present: Edema (bilateral 3+ pitting edema), Other (right arm PICC line displaced). No: Cyanosis Lower Extremity: No: Edema Neurological: No: Speech Normal Skin: Present: Warm, Dry, Normal Color. No: Rashes Psychiatric: Present: Lethargic, Other (patient opens eyes to commands ) Medical Decision Making ED Course and Treatment: EKG: Ordered, reviewed, and independently interpreted the EKG. Rate : 73 BPM Rhythm : Sinus Rhythm Interpretation : Right bundle branch block Comparison : No change from previous EKG on 09/20/16 for comparison. 10/09/16 11:[address] Aceves who came to eval the pt in the ED, will admit to Med/Surg. States pt is DNR/DNI and does not want vent. 10/09/16 11:32 Patient family presents to the emergency department. 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 10/09/16 11:55 Chest X-ray: Creator : Casey Zhao MD COMPARISON: No prior. FINDINGS: LUNGS: Hazy densities most likely due to layering of pleural effusions. Tracheostomy present PLEURA: There is layering of bilateral pleural effusions left greater than right. CARDIOVASCULAR: Mild cardiomegaly OSSEOUS STRUCTURES: No significant abnormalities. VISUALIZED UPPER ABDOMEN: Normal. OTHER FINDINGS: None. IMPRESSION: Layering of bilateral pleural effusions 10/09/16 12:52 I have reviewed patient POLST form. Patient is a DNR/DNI, limited treatment only. - Lab Interpretations Lab Results: Lab Results 10/09/16 11:50: pCO2 44, pO2 72.0 L, HCO3 10.1 L, ABG pH 6.97 L*, ABG Total CO2 11.5 L, ABG O2 Saturation 96.3, ABG Base Excess -20.3 L, ABG Potassium 3.9, Sodium 136.0, Chloride 115.0 H, Glucose 180 H, Lactate 0.5 L, FiO2 24.0, Arterial Blood Potassium 3.9 I have reviewed the lab results: Yes - RAD Interpretation Radiology Orders: 10/09/16 11:22 CHEST PORTABLE [RAD] Stat 10/09/16 11:27 DUPLEX UPPER EXTRM VEIN BILAT [US] Stat - Medication Orders Current Medication Orders: Calcium Acetate (Phoslo) 667 mg GT TID PAULINE Cefepime HCl (Maxipime 1gm) 1 gm in 100 mls @ 100 mls/hr IVPB Q24H PAULINE PRN Reason: Protocol Sodium Chloride (Sodium Chloride 0.9%) 1,000 mls @ 100 mls/hr IV .Q10H [facility] Stop: 10/14/16 00:29 Discontinued Medications Piperacillin Sod/Tazobactam Sod (Zosyn 3.375 In Ns 100ml) 100 mls @ 200 mls/hr IVPB STAT STA PRN Reason: Protocol Stop: 10/09/16 11:55 Last Admin: 10/09/16 13:38 Dose: 200 mls/hr Vancomycin HCl (Vancomycin 1gm) 1 gm in 250 mls @ 167 mls/hr IVPB STAT STA PRN Reason: Protocol Stop: 10/09/16 12:57 Last Admin: 10/09/16 14:55 Dose: 167 mls/hr Sodium Chloride (Sodium Chloride 0.9%) 500 mls @ 999 mls/hr IV .Q31M STA Stop: 10/09/16 11:58 Last Admin: 10/09/16 13:36 Dose: 999 mls/hr Sodium Chloride (Sodium Chloride 0.9%) 1,000 mls @ 999 mls/hr IV .Q1H1M STA Stop: 10/09/16 12:54 Last Admin: 10/09/16 13:35 Dose: 999 mls/hr Magnesium Sulfate 2 gm/ Sodium (Chloride) 104 mls @ 102 mls/hr IVPB ONCE ONE Stop: 10/09/16 14:36 Last Admin: 10/09/16 15:53 Dose: 102 mls/hr Pneumococcal Polyvalent Vaccine (Pneumovax 23 Vaccine) 0.5 ml IM .ONCE ONE Stop: 10/09/16 20:24 Sodium Bicarbonate (Sodium Bicarbonate (8.4%) 50 Meq Syringe) 50 meq IVP ONCE ONE Stop: 10/09/16 12:03 Last Admin: 10/09/16 14:38 Dose: 50 meq - Scribe Statement The provider has reviewed the documentation as recorded by the Elvinibblaine Salvador Provider Scribe Attestation: All medical record entries made by the Scribe were at my direction and personally dictated by me. I have reviewed the chart and agree that the record accurately reflects my personal performance of the history, physical exam, medical decision making, and the department course for this patient. I have also personally directed, reviewed, and agree with the discharge instructions and disposition. Disposition/Present on Arrival - Present on Arrival Any Indicators Present on Arrival: No History of DVT/PE: No History of Uncontrolled Diabetes: No Urinary Catheter: Yes History of Decub. Ulcer: No History Surgical Site Infection Following: None - Disposition Have Diagnosis and Disposition been Completed?: Yes Diagnosis: Sepsis Disposition: HOSPITALIZED Disposition Time: 11:22 Patient Problems: Current Active Problems Problem Status Onset Sepsis Acute Condition: SERIOUS
[2016-10-09] MEDS ORDERED: Piperacillin/Tazobact 3.375 gm 100 ML IVPB STA (11:26)
[2016-10-09] MEDS ORDERED: Vancomycin 1gm in NS 250ml 1 GM/250 ML BAG IVPB STA (11:28)
[2016-10-09] MEDS ORDERED: Sodium Chloride 0.9% 500 ML IV STA (11:28)
[2016-10-09] MEDS ORDERED: Sodium Chloride 0.9% 1,000 ML IV STA (11:54)
--- NOTE | 2016-10-09 11:55 | RAD ---
HISTORY: Sepsis Patient COMPARISON: No prior. FINDINGS: LUNGS: Hazy densities most likely due to layering of pleural effusions. Tracheostomy present PLEURA: There is layering of bilateral pleural effusions left greater than right. CARDIOVASCULAR: Mild cardiomegaly OSSEOUS STRUCTURES: No significant abnormalities. VISUALIZED UPPER ABDOMEN: Normal. OTHER FINDINGS: None. IMPRESSION: Layering of bilateral pleural effusions
[2016-10-09 11:58] LABS: ARTERIAL BLOOD GAS HCO3 10.1 mmol/L (21-28)
[2016-10-09 11:59] LABS: ARTERIAL BLOOD GAS PH 6.97 (7.35-7.45)
[2016-10-09] MEDS ORDERED: Sodium Bicarbonate (8.4%) 50 Meq Syringe IVP ONE (12:02)
[2016-10-09 12:24] VITALS: RESP 20
[2016-10-09 13:07] LABS: ADD MANUAL DIFF? NO
[2016-10-09 13:14] LABS: BASO # 0.01 K/mm3 (0.0-2.0); BASO % 0.1 % (0.0-3.0); EOS % 0.1 % (1.5-5.0); GRAN # 10.84 (1.4-6.5); GRAN % 86.5 % (50.0-68.0); HEMATOCRIT 26.7 % (36.0-48.0); LYMPH # 0.5 (1.2-3.4); LYMPH % 3.9 % (22.0-35.0); MEAN CELL VOLUME 100.8 fL (80.0-105.0); MEAN CORPUSCULAR HEMOGLOBIN 30.2 pg (25.0-35.0); MEAN PLATELET VOLUME 12.4 fl (7.0-11.0); MONO # 1.2 (0.1-0.6); MONO % 9.4 % (1.0-6.0); PLATELET COUNT 228 10^3/uL (120.0-450.0); WHITE BLOOD COUNT 12.5 10^3/ul (4.5-11.0)
--- NOTE | 2016-10-09 13:17 | HP ---
The patient is a 76-year-old, long-term resident of [facility], has been transferred to the [place] [facility] because of lethargy, weakness , increasing lethargy, weakness, and bilateral upper extremity swelling. The patient was also found to be hypotensive when arrived in the Emergency Room. The patient was seen in bed #17 or 18 in the Emergency Room with patient's next of kin, Pavithra , at bedside. The patient is seen lying in the bed. The patient is lethargic. The patient is unable to give any proper history. According to the triage note, patient was sent for abnormal labs, but patient already has chronic renal failure, but patient was sent for lethargy, decreased responsiveness, decreased urine output, hypotension and bilateral upper extremity swelling. REVIEW OF SYSTEMS: A 13-system review was done. Pertinent positive and negative dictated as above. CODE STATUS: DNR/DNI. LIVING WILL AND ADVANCED DIRECTIVE: POLST. ALLERGIES: Not available. CORRECTION MEDICATIONS: Insulin Lantus 10 units once a day. Gastrostomy tube feeding. The patient is on Synthroid. The patient is on Protonix. The patient is on Lopressor. The patient is on Crestor. The patient is on gastrostomy tube feeding. The patient is on baby aspirin 81 daily. FURTHER HOME MEDICATIONS: As per [facility] MAR. OCCUPATIONAL HISTORY: The patient is a disabled [facility] resident. FAMILY HISTORY: Not available. MENSTRUAL HISTORY: Postmenopausal. ALLERGIES: Not available. CORRECTION MEDICATIONS: Insulin Lantus 10 units once a day. Gastrostomy tube feeding. The patient is on Synthroid. The patient is on Protonix. The patient is on Lopressor. The patient is on Crestor. The patient is on gastrostomy tube feeding. The patient is on baby aspirin 81 daily. FURTHER HOME MEDICATIONS: As per [facility] MAR. OCCUPATIONAL HISTORY: The patient is a disabled [facility] resident. FAMILY HISTORY: Not available. MENSTRUAL HISTORY: Postmenopausal. PAST MEDICAL AND SURGICAL HISTORY: History of ventilator-dependent respiratory failure, history of tracheostomy, history of exacerbation of chronic obstructive pulmonary disease, history of tracheostomy placement, history of normocytic iron-deficiency anemia, history of multiple iron IV Venofer treatments, history of multiple packed red blood cell transfusion, history of tracheostomy, history of kyphosis, history of pneumonia, history of chronic obstructive pulmonary disease, history of right bundle branch block, history of colonic volvulus, history of gastrostomy and jejunostomy placement, history of colostomy, history of neurogenic bladder, history of chronic indwelling Hahn catheter, history of sacral decubitus ulceration, history of functional quadriplegia with chronic bedridden status, history of severe gait dysfunction, history of hypothyroidism, history of dyslipidemia, history of insulin- requiring type 1 diabetes mellitus, history of sepsis, history of recurrent urinary tract infection versus colonization, history of pneumonia, history of sepsis and bacteremia, history of chronic kidney disease stage III, history of hypokalemia. For further details regarding the past medical history, please refer to multiple previous admissions in [facility] in the [facility] system. PAST MEDICAL AND SURGICAL HISTORY: History of ventilator-dependent respiratory failure, history of tracheostomy, history of exacerbation of chronic obstructive pulmonary disease, history of tracheostomy placement, history of normocytic iron-deficiency anemia, history of multiple iron IV Venofer treatments, history of multiple packed red blood cell transfusion, history of tracheostomy, history of kyphosis, history of pneumonia, history of chronic obstructive pulmonary disease, history of right bundle branch block, history of colonic volvulus, history of gastrostomy and jejunostomy placement, history of colostomy, history of neurogenic bladder, history of chronic indwelling Hahn catheter, history of sacral decubitus ulceration, history of functional quadriplegia with chronic bedridden status, history of severe gait dysfunction, history of hypothyroidism, history of dyslipidemia, history of insulin- requiring type 1 diabetes mellitus, history of sepsis, history of recurrent urinary tract infection versus colonization, history of pneumonia, history of sepsis and bacteremia, history of chronic kidney disease stage III, history of hypokalemia. For further details regarding the past medical history, please refer to multiple previous admissions in [facility] in the [facility] system. 1. Systemic inflammatory response syndrome. 2. Acute renal failure with underlying chronic kidney disease stage II/III. 3. Decubitus ulceration. 4. Hypertension. 5. Low-grade fever. 6. Tachycardia. 7. Status post tracheostomy, colostomy, jejunostomy. 8. Leukocytosis with granulocytosis. 9. Normocytic anemia. 10. Status post packed red blood transfusion. 11. Hypokalemia. 12. Insulin-requiring diabetes mellitus with hemoglobin A1c of 7.0. 13. Hyperuricemia. 14. Hyperuricemia. 15. Hyperuricemia. 16. Hypovitaminosis D. 17. Hypertriglyceridemia with decreased HDL. 18. Iron deficiency, chronic normocytic anemia. 19. Proteinuria, microscopic hematuria, pyuria, bacteriuria and funguria. 20. Questionable right lower lobe pneumonia, atelectasis. 21. Right lower lobe atelectasis, pneumonia. 22. Cholecystectomy with mildly dilated common bile duct. 23. Status post gastrostomy and colostomy. 24. Status post transverse and descending colon resection. 25. Right bundle branch block with age indeterminate inferior infarct. 26. Hypokalemia. 27. Neurogenic bladder. 28. Hypovitaminosis D. 29. Hypothyroidism. 1. Acute renal failure with severe prerenal kidney injury. 2. Feeding dysfunction and gastrostomy tube malfunction. 3. Systemic inflammatory response syndrome with possible sepsis with acute renal failure with underlying chronic kidney disease. 4. Right lower lobe healthcare-associated pneumonia, atelectasis and infiltrate. 5. Decubitus ulceration. 6. Severe gait dysfunction and bedridden status and functional quadriplegia. 7. Gastrostomy tube site cellulitis. 8. Underlying chronic kidney disease stage III/IV. 9. Severe hypokalemia. 10. Anion gap metabolic acidosis. 11. Protein malnutrition and hypoalbuminemia. 12. Anemia. 13. Iron deficiency anemia. 14. Low-grade fever. 15. History of hypertension. 16. Tracheostomy, gastrostomy, colostomy. 17. Leukocytosis with granulocytosis. 18. Normocytic anemia. 19. Status post packed red blood cell transfusion. 20. Hypokalemia. 21. Hyperuricemia. 22. Type 1 insulin-requiring diabetes mellitus with hemoglobin A1c of 7.0. 23. Hyperuricemia. 24. Hypertriglyceridemia with decreased HDL. 25. Hypovitaminosis D. 26. Status post packed red blood cell transfusion x 1. 27. Right lower lobe atelectasis, pneumonia and left lung base opacity. 28. Mildly dilated common bile duct secondary to cholecystectomy. 29. Diffuse atherosclerotic calcification. 30. Status post gastrostomy and colostomy. 31. Status post transverse and descending colon resection. 32. Neurogenic bladder. 33. Sacral decubitus ulceration. 34. Right bundle branch block, age-indeterminate inferior infarct. 35. Hypokalemia. 36. History of ventilator-dependent respiratory failure. 37. History of tracheostomy. 38. History of chronic obstructive pulmonary disease. 39. History of hypothyroidism. 40. History of type 1 diabetes mellitus. 41. History of dyslipidemia. 42. History of multiple abdominal surgeries. 43. History of gastrostomy, jejunostomy, colostomy. 44. History of neurogenic bladder. 45. History of functional quadriplegia. 1. Acute renal failure. 2. Low-grade fever. 3. History of hypertension. 4. Questionable systemic inflammatory response syndrome versus questionable sepsis. 5. Leukocytosis with granulocytosis. 6. Normocytic anemia with decreasing hemoglobin and hematocrit. 7. Hypokalemia. 8. Acute renal failure. 9. Anuric renal failure. 10. Insulin requiring diabetes mellitus. 11. Hyperuricemia. 12. Hypoalbuminemia. 13. History of respiratory failure and tracheostomy placement. 14. Hypertriglyceridemia, but decreased HDL. 15. History of hypothyroidism. 16. Right bundle branch block. 17. Right lower lobe atelectasis versus pneumonia and opacity. 18. Mildly dilated common bile duct with possible prior cholecystectomy. 19. Status post gastrostomy and colostomy. 20. Anuric renal failure. 21. Severe gait dysfunction and deconditioning with bedridden status and functional quadriplegia. 22. Right bundle branch block with age-indeterminate inferior infarct. 23. Leukocytosis with granulocytosis. 24. History of dyslipidemia, history of diabetic gastroparesis, history of hypothyroidism, history of insulin-requiring diabetes mellitus, history of chronic iron deficiency normocytic anemia. 25. History of tracheostomy. 26. History of decubitus ulceration. 1. Acute renal failure with worsening BUN, creatinine with creatinine going up to greater than 8. 2. Probable prerenal kidney injury and acute renal failure. 3. Leukocytosis with granulocytosis. 4. Chronic normocytic iron deficiency anemia. 5. Hemoconcentration and severe dehydration and hypovolemia. 6. Right bundle branch block. 7. Questionable recurrent chronic urinary tract infection versus colonization. 8. Acute renal failure. 9. Right bundle branch block. 10. History of ventilator-dependent respiratory failure, history of tracheostomy, history of chronic obstructive pulmonary disease exacerbation, history of right bundle branch block, history of hypothyroidism, history of type 1 insulin-requiring diabetes mellitus, history of dyslipidemia, history of multiple abdominal surgeries, history of gastrostomy jejunostomy, history of colostomy, history of neurogenic bladder, history of severe gait dysfunction, bedridden status and functional quadriplegia. PHYSICAL EXAMINATION: VITAL SIGNS: T-max 98.3, heart rate 67-71, blood pressure 86/42, 82/31, respirations 20, O2 sat 96%. GENERAL: The patient is seen lying in the bed. HEAD: Normocephalic, atraumatic. HEENT: Shows dry oral mucosa. Pinkish, pale conjunctivae. Anicteric sclerae. NECK: Positive tracheostomy. CHEST: Kyphosis. LUNGS: Shows positive rhonchi upper lung dunaway anteriorly. CARDIOVASCULAR: S1, S2, regular rhythm. Questionable soft systolic murmur left sternal border, right second intercostal space. ABDOMEN: Protuberant, positive multiple surgical scars. Positive colostomy, positive jejunostomy. GENITALIA: Female. Positive Hahn catheter. EXTREMITIES: Shows bilateral upper extremity pitting edema of the bilateral upper extremity, positive trace swelling of the lower extremity. MUSCULOSKELETAL: Shows a body mass index of 40. HEIGHT: 5 feet 6 inches. WEIGHT: 250 pounds. CODE STATUS: DNR/DNI LIVING WILL AND ADVANCED DIRECTIVE: DNR/DNI. SOCIAL HISTORY: Negative for smoking, alcohol, drug use, communicable transmissible disease. DIAGNOSTICS: Pending. The patient's only VBG is available, which shows pH of 6.97, bicarb 10, O2 72, pCO2 44, glucose 180, lactate is 0.5. The patient's other labs pending. Chest x-ray shows haziness of the bilateral lung dunaway, suggestive of pleural effusion with tracheostomy noted. IMPRESSION AND PLAN: 1. Lethargy, etiology undetermined with decreased responsiveness. 2. Bilateral upper extremity edema. 3. Hypotension 4. Questionable sepsis versus septic shock. 5. Questionable metabolic acidosis. 6. Acute renal failure with underlying chronic kidney disease. 7. Hypotension. 8. Renal failure. 9. History of decubitus ulceration. 10. Status post tracheostomy, colostomy, jejunostomy. 11. Normocytic anemia with history of leukocytosis, granulocytosis, and packed red blood cell transfusion. 12. Hypokalemia. 13. Iron deficiency anemia. 14. History of pneumonia and atelectasis. 15. Hypotension. 16. Right bundle branch block. 17. Questionable volume overload with bilateral pleural effusion. 18. Tracheostomy. 19. Cardiomegaly. 20. Bilateral upper extremity venous stasis, etiology undetermined. 21. Sacral decubitus ulceration. 22. Functional quadriplegia with bedridden status. 23. History of hypovitaminosis D, history of diabetic gastroparesis, history of insulin-requiring diabetes mellitus, history of hypothyroidism, history of dyslipidemia, history of insulin-requiring diabetes mellitus, history of iron deficiency anemia. PLAN: At this time, we are awaiting for further diagnostics labs. CMP, magnesium, phosphorus, CBC, PT, PTT has been ordered. Blood and urine cultures ordered. The patient has been given an amp of bicarb. The patient was given a bolus of 0.9 normal saline. The patient was given 1 dose of vancomycin 1 gram IV, Zosyn 3.375 grams given. Bilateral lower extremity venous Doppler ordered. EKG ordered. The patient is at present DNR/DNI, which will be maintained. The patient has a DNR/DNI POLST, which will be maintained. I have seen the patient in the ER. In bed #17. The patient's next of kin, Pavithra , [id number] is at bedside and she has expressed to maintain the DNR/DNI and only do supportive care. They have also declined dialysis, etc. At present, patient's further management will be dependent upon the patient's clinical condition, hemodynamic status, and as per patient's response to therapeutic intervention, as per patient's diagnostic test results and as per recommendation by all the physicians involved in the care of the patient. Dictated and electronically signed, not read. Dom Aceves MD cc: [id number] TT: 10/09/2016 13:16:27 en MTDD
[2016-10-09 13:21] LABS: ALB/GLOB RATIO 0.8 (1.1-1.8); BILIRUBIN,TOTAL 0.3 mg/dL (0.2-1.3); CALCIUM 7.7 mg/dL (8.4-10.5); PHOSPHOROUS 6.4 mg/dL (2.5-4.5); POTASSIUM 4.4 mmol/L (3.6-5.0); TOTAL PROTEIN 6.1 g/dL (5.8-8.3)
[2016-10-09 13:29] LABS: INR 1.05 (0.93-1.08); PARTIAL THROMBOPLASTIN TIME 34.8 Seconds (23.7-30.8)
[2016-10-09] MEDS ORDERED: Magnesium Sulfate 2 GM in Sodium Chloride 0.9% 100 ML IVPB ONE (13:35)
--- NOTE | 2016-10-09 14:48 | CARD ---
APPROVED REPORT EKG Measurement Heart [id number] <Conclusion> Normal sinus rhythm Right bundle branch block Abnormal ECG
[2016-10-09 16:13] VITALS: BP 98/45; PULSE 58; O2SAT 95
[2016-10-09] MEDS ORDERED: Cefepime 1gm in NS 100ml 1 GM/100 ML BAG IVPB SCH (18:00)
--- NOTE | 2016-10-09 18:09 | CP.PCM.PN ---
Subjective - Date & Time of Evaluation Date of Evaluation: 10/09/16 Time of Evaluation: 17:38 - Subjective Subjective: Patient is anemic,has orders for blood transfusion,needs consent for the same. Since pt is unresponsive,consent is to be obtained from Pavithra Cheek who has POA for Medical decisions. Explained to M/S Ham about pt's anemic state,the need for blood transfusion and its risks and benefits. She stated she understood what she was told then signed consent for the same. Objective - Vital Signs/Intake and Output Vital Signs (last 24 hours): Temp Pulse Resp BP Pulse Ox 98.3 F 58 L 20 98/45 L 95 10/09/16 11:15 10/09/16 16:13 10/09/16 16:13 10/09/16 16:13 10/09/16 16:13 - Medications Medications: Current Medications Calcium Acetate (Phoslo) 667 mg GT TID PAULINE - Labs Labs: 10/09/16 13:00 10/09/16 13:00 PT 11.3 Seconds (9.9-11.8) 10/09/16 13:00 INR 1.05 (0.93-1.08) 10/09/16 13:00 APTT 34.8 Seconds (23.7-30.8) H 10/09/16 13:00
--- NOTE | 2016-10-09 19:08 | US ---
HISTORY: Arm pain and swelling. Evaluate for deep venous thrombosis. PHYSICIAN(S): Bryan Muniz MD. FINDINGS: The exam is extremely limited by body habitus and edema. The right internal jugular vein is sonographically normal and compressible. The visualized segments of the right subclavian vein and right axillary vein are normal and compressible. There is a catheter in the left internal jugular vein. The left internal jugular vein is atretic. Limited images of the left subclavian and left axillary veins are unremarkable. IMPRESSION: 1. Very limited study. 2. No obvious acute thrombosis of the visualized venous segments
[2016-10-09 20:23] VITALS: TEMP 3; BMI 40.3
[2016-10-09] MEDS ORDERED: Pneumococcal 23-Valent Vaccine IM ONE (20:23)
[2016-10-09] MEDS ORDERED: Sodium Chloride 0.9% 1,000 ML IV SCH (20:30)
--- NOTE | 2016-10-09 20:32 | CP.PCM.PN ---
Subjective - Date & Time of Evaluation Date of Evaluation: 10/09/16 Time of Evaluation: 20:31 - Subjective Subjective: Went to room to draw blood with nurse Leydi. Patient is not breathing , has no pulse, not responding ,see my note. Objective - Vital Signs/Intake and Output Vital Signs (last 24 hours): Temp Pulse Resp BP Pulse Ox 3 F L 56 L 20 98/45 L 95 10/09/16 19:33 10/09/16 19:33 10/09/16 19:33 10/09/16 19:33 10/09/16 16:13 - Medications Medications: Current Medications Calcium Acetate (Phoslo) 667 mg GT TID PAULINE Cefepime HCl (Maxipime 1gm) 1 gm in 100 mls @ 100 mls/hr IVPB Q24H PAULINE PRN Reason: Protocol Sodium Chloride (Sodium Chloride 0.9%) 1,000 mls @ 100 mls/hr IV .Q10H PAULINE Stop: 10/14/16 00:29 - Labs Labs: 10/09/16 13:00 10/09/16 13:00 PT 11.3 Seconds (9.9-11.8) 10/09/16 13:00 INR 1.05 (0.93-1.08) 10/09/16 13:00 APTT 34.8 Seconds (23.7-30.8) H 10/09/16 13:00
--- NOTE | 2016-10-09 20:36 | CP.PCM.PRO ---
Pronouncement of Note - Clinical Findings Physical Exam: No Response Verbal/Painful Stimuli, Absent Peripheral Pulses{ Carotid & Femoral}, Absent Heart & Breath Sounds, No Pupillary Light Reflex, No Corneal Reflex, Pupils Fixed & Dilated, Absence of Vital Signs - Pronouncement Time Time of Pronouncement of : 20:25 - Notifications Pronouncement Notifications: Family Notified (Some family members are here.I was asked to notify Pavithra Jones which I did.), Atending Notified ( was notified.) Sample Color Maker Notified: Yes (Nurse will.) - Autopsy Autopsy Requested: No [place] #[id number]
--- NOTE | 2016-11-22 15:58 | DS ---
DATE OF ADMISSION: The patient on 10/09/2016. The patient around 8:25. The patient was pronounced by Dr. Barba. Family was notified, body was released. The patient was DNR/DNI. DISCHARGE DIAGNOSES: 1. Lethargy, etiology undetermined with decreased responsiveness. 2. Encephalopathy. 3. Bilateral upper extremity edema. 4. Hypertension. 5. Questionable sepsis with septic shock. 6. Metabolic acidosis. 7. Acute renal failure with underlying chronic kidney disease. 8. Decubitus ulceration. 9. Status post tracheostomy, colostomy, jejunostomy. 10. Normocytic iron deficiency anemia with leukocytosis and granulocytosis. 11. History of packed red blood cell transfusion. 12. Hypokalemia. 13. Pneumonia and atelectasis. 14. Right bundle branch block. 15. Possible volume overload with bilateral pleural effusion. 16. Cardiomegaly. 17. Bilateral upper extremity venous stasis. 18. Functional quadriplegia with bedridden status. 19. History of hypothyroidism. 20. Diabetic gastroparesis. 21. Insulin-requiring diabetes mellitus. 22. History of dyslipidemia. 23. History of hypovitaminosis D. 24. Bradycardia. 25. Hypoxemia. 26. Leukocytosis with granulocytosis. 27. Normocytic anemia. 28. Hypomagnesemia. 29. Hyperphosphatemia. 30. . 31. Layering bilateral pleural effusion, left more than the right. 32. Right bundle branch block. The patient on 10/09/2016 at 2025. Family notified, body released. Dom Aceves MD TABTIHA
== END 2016-10-09 20:25 | DRG 871 ==
LOC: ED 10:52 → ERH 12:17 → 5RSO 17:07
PROVIDERS: ADMIT Internal Medicine; ATTEND Internal Medicine
DX: A41.9 Sepsis, unspecified organism (principal); R53.2 Functional quadriplegia; N17.9 Acute kidney failure, unspecified; L89.159 Pressure ulcer of sacral region, unspecified stage; I13.0 Hypertensive heart and chronic kidney disease with heart failure and stage 1 through stage 4 chronic kidney disease, or unspecified chronic kidney disease; K31.84 Gastroparesis; Z93.0 Tracheostomy status; E11.22 Type 2 diabetes mellitus with diabetic chronic kidney disease; I50.9 Heart failure, unspecified; E11.43 Type 2 diabetes mellitus with diabetic autonomic (poly)neuropathy; N18.9 Chronic kidney disease, unspecified; J44.9 Chronic obstructive pulmonary disease, unspecified; I45.10 Unspecified right bundle-branch block; E87.6 Hypokalemia; D50.9 Iron deficiency anemia, unspecified; I87.2 Venous insufficiency (chronic) (peripheral); E78.5 Hyperlipidemia, unspecified; E03.9 Hypothyroidism, unspecified; E55.9 Vitamin D deficiency, unspecified; M10.9 Gout, unspecified; Z66 Do not resuscitate; Z93.3 Colostomy status; Z93.4 Other artificial openings of gastrointestinal tract status; Z79.4 Long term (current) use of insulin; Z87.01 Personal history of pneumonia (recurrent); Z74.01 Bed confinement status